=== PATIENT | female | born 1960 | race American Indian/Alaskan Native ===

== ENCOUNTER 2017-11-15 11:50 | Emergency (ER) | payer SELFPAY ==
[2017-11-15 12:01] VITALS: BP 153/75
--- NOTE | 2017-11-15 12:54 | Emergency Department Report ---
HPI - General Chief Complaint: Allergic Reaction Time Seen by Provider: 11/15/17 12:46 - HPI HPI: Patient is a 57-year-old female who states that last night while sleeping she felt something was on her face. When she woke up this morning she's got multiple areas of swelling to the face. This is from the hairline near her ear extending down to the cheek and chin. Patient states these areas are tender to touch. There are also some itching associated with it. Patient denies any fevers chills nausea vomiting at this time. ED Past Medical Hx - Past Medical History Hx Diabetes: Yes Additional medical history: Anemia - Surgical History Additional Surgical History: Left knee. Left 5th digit repair. - Social History Smoking Status: Never Smoker Substance Use Type: None - Medications Home Medications: Home Medications Medication Instructions Recorded Confirmed Last Taken Type Gabapentin 600 mg PO TID PRN 02/25/16 02/25/16 1 Day Ago History ~02/24/16 HumaLOG VIAL 42 unit SQ DAILY 02/25/16 02/25/16 1 Day Ago History ~02/24/16 Bacitracin Zinc Oint [Antibiotic 20 applic TP BID #1 tube 11/15/17 Unknown Rx Oint] Sulfamethoxazole/Trimethoprim 1 each PO BID #14 tablet 11/15/17 Unknown Rx [Bactrim DS TAB] predniSONE [Deltasone] 10 mg PO QDAY #5 tab 11/15/17 Unknown Rx ED Review of Systems ROS: Stated complaint: SOMETHING BITE HER ON FACE AND EAR Other details as noted in HPI Comment: All other systems reviewed and negative Physical Exam - Physical Exam Vital Signs: Vital Signs 11/15/17 11:58 Temperature 98.2 F Pulse Rate 97 H Respiratory 16 Rate Blood Pressure 153/75 O2 Sat by Pulse 99 Oximetry General: Patient is alert and oriented 3 in no acute distress Physical Exam: Patient has small papules with some surrounding erythema from the hairline near the ear extending down through the cheek and chin. These areas are consistent with insect bite swan. ED Course Vital Signs 11/15/17 11:58 Temperature 98.2 F Pulse Rate 97 H Respiratory 16 Rate Blood Pressure 153/75 O2 Sat by Pulse 99 Oximetry ED Medical Decision Making - Medical Decision Making Patient will be started on a short course of prednisone as well as Bactrim. Bacitracin will be given as well. Critical care attestation.: If time is entered above; I have spent that time in minutes in the direct care of this critically ill patient, excluding procedure time. ED Disposition Clinical Impression: Infected insect bite Qualifiers: Encounter type: initial encounter Qualified Code(s): W57.XXXA - Bitten or stung by nonvenomous insect and other nonvenomous arthropods, initial encounter Disposition: DC-01 TO HOME OR SELFCARE Is pt being admited?: No Does the pt Need Aspirin: No Condition: Stable Instructions: Insect Bite or Sting (ED) Prescriptions: Bacitracin Zinc Oint [Antibiotic Oint] 20 applic TP BID #1 tube predniSONE [Deltasone] 10 mg PO QDAY #5 tab Sulfamethoxazole/Trimethoprim [Bactrim DS TAB] 1 each PO BID #14 tablet Referrals: PRIMARY CARE, [Primary Care Provider] - 3-5 Days
--- NOTE | 2017-11-15 12:57 | Emergency Department Report ---
HPI - General Chief Complaint: Allergic Reaction Time Seen by Provider: 11/15/17 12:46 ED Past Medical Hx - Past Medical History Hx Diabetes: Yes Additional medical history: Anemia - Surgical History Additional Surgical History: Left knee. Left 5th digit repair. - Social History Smoking Status: Never Smoker Substance Use Type: None - Medications Home Medications: Home Medications Medication Instructions Recorded Confirmed Last Taken Type Gabapentin 600 mg PO TID PRN 02/25/16 02/25/16 1 Day Ago History ~02/24/16 HumaLOG VIAL 42 unit SQ DAILY 02/25/16 02/25/16 1 Day Ago History ~02/24/16 ED Review of Systems ROS: Stated complaint: SOMETHING BITE HER ON FACE AND EAR Other details as noted in HPI Physical Exam - Physical Exam Vital Signs: Vital Signs 11/15/17 11:58 Temperature 98.2 F Pulse Rate 97 H Respiratory 16 Rate Blood Pressure 153/75 O2 Sat by Pulse 99 Oximetry ED Course Vital Signs 11/15/17 11:58 Temperature 98.2 F Pulse Rate 97 H Respiratory 16 Rate Blood Pressure 153/75 O2 Sat by Pulse 99 Oximetry Critical care attestation.: If time is entered above; I have spent that time in minutes in the direct care of this critically ill patient, excluding procedure time. ED Disposition Condition: Stable Referrals: PRIMARY CARE, [Primary Care Provider] - 3-5 Days
== END 2017-11-15 14:00 | disposition home or self-care (01) ==
LOC: ED 11:50
DX: S00.86XA Insect bite (nonvenomous) of other part of head, initial encounter (principal); E11.9 Type 2 diabetes mellitus without complications; Z79.84 Long term (current) use of oral hypoglycemic drugs; W57.XXXA Bitten or stung by nonvenomous insect and other nonvenomous arthropods, initial encounter; Y93.89 Activity, other specified; Y92.89 Other specified places as the place of occurrence of the external cause; Y99.8 Other external cause status

== ENCOUNTER 2017-11-26 14:44 | Emergency (ER) | payer SELFPAY ==
[2017-11-26 15:46] LABS: Bacteria,Urine 1+ /HPF (Negative); Bilirubin,Urine NEG (Negative); Blood,Urine SM (Negative); Color,Urine Yellow (Yellow); Urobilinogen,Urine < 2.0 mg/dL (<2.0)
[2017-11-26 16:03] LABS: Basophils # (Auto) 0.1 K/mm3 (0.0-0.1); Eosinophils # (Auto) 0.2 K/mm3 (0.0-0.4); Eosinophils % (Auto) 2.3 % (0.0-4.3); Hematocrit 36.4 % (30.3-42.9); Hemoglobin 11.7 gm/dl (10.1-14.3); Lymphocytes # (Auto) 2.3 K/mm3 (1.2-5.4); Lymphocytes % (Auto) 32.7 % (13.4-35.0); Mean Corpuscular HGB Conc 32 % (30-34); Mean Corpuscular Hemoglobin 28 pg (28-32); Mean Corpuscular Volume 85 fl (79-97); Monocytes # (Auto) 0.5 K/mm3 (0.0-0.8); Monocytes % (Auto) 7.3 % (0.0-7.3); Platelet Count 333 K/mm3 (140-440); Red Blood Count 4.26 M/mm3 (3.65-5.03); Red Cell Distribution Width 13.8 % (13.2-15.2)
[2017-11-26 16:13] LABS: Albumin 4.2 g/dL (3.9-5); Calcium 9.8 mg/dL (8.4-10.2)
[2017-11-26] MEDS ORDERED: NACL 0.9% 1000 ML 1,000 ML IV ONE (16:15)
[2017-11-26] MEDS ORDERED: TORADOL IV ONE (16:26)
[2017-11-26 16:49] VITALS: BP 133/63
--- NOTE | 2017-11-26 17:06 | Emergency Department Report ---
ED Abdominal Pain HPI - General Chief Complaint: Abdominal Pain Stated Complaint: PAIN/LEFT SIDE Time Seen by Provider: 11/26/17 16:30 Source: patient Mode of arrival: Ambulatory Limitations: No Limitations - History of Present Illness Initial Comments: Ms Olson is a 57 year-old woman with hx of IDDM and anemia who presents with left flank pain. has been having left flank pain for about 7 days. Does not radiate. not assocaited with nausea/vomiting. Normal urine, no blood in urine, no pain with urination. Normal stools. Reporst poorly controlled blood sugar. [facility] she was told her kidney fucntion is worsening. MD Complaint: flank pain Severity scale (0 -10): 6 - Related Data Home Medications Medication Instructions Recorded Confirmed Last Taken Gabapentin 600 mg PO TID PRN 02/25/16 02/25/16 1 Day Ago ~02/24/16 HumaLOG VIAL 42 unit SQ DAILY 02/25/16 02/25/16 1 Day Ago ~02/24/16 Previous Rx's Medication Instructions Recorded Last Taken Type Bacitracin Zinc Oint [Antibiotic 20 applic TP BID #1 tube 11/15/17 Unknown Rx Oint] Sulfamethoxazole/Trimethoprim 1 each PO BID #14 tablet 11/15/17 Unknown Rx [Bactrim DS TAB] predniSONE [Deltasone] 10 mg PO QDAY #5 tab 11/15/17 Unknown Rx Allergies Allergy/AdvReac Type Severity Reaction Status Date / Time No Known Allergies Allergy Unverified 08/07/13 10:44 ED Review of Systems ROS: Stated complaint: PAIN/LEFT SIDE Other details as noted in HPI Constitutional: Negative for fever, chills and diaphoresis. HENT: Negative for nosebleeds. Negative for congestion, rhinorrhea, neck pain and neck stiffness. Eyes: Negative for photophobia, pain and visual disturbance. Respiratory: Negative for cough and shortness of breath. Cardiovascular: Negative for chest pain, palpitations and leg swelling. Gastrointestinal: Negative for nausea, vomiting, abdominal pain, diarrhea, constipation and blood in stool. Genitourinary: Negative for dysuria and hematuria. Musculoskeletal: Negative for joint pain or joint swelling Skin: Negative for rash. Neurological: Negative for numbness. Negative for speech difficulty and weakness. ED Past Medical Hx - Past Medical History Previous Medical History?: Yes Hx Hypertension: Yes Hx Diabetes: Yes Additional medical history: Anemia - Surgical History Past Surgical History?: Yes Additional Surgical History: Left knee. Left 5th digit repair. - Social History Smoking Status: Never Smoker Substance Use Type: Prescribed - Medications Home Medications: Home Medications Medication Instructions Recorded Confirmed Last Taken Type Gabapentin 600 mg PO TID PRN 02/25/16 02/25/16 1 Day Ago History ~02/24/16 HumaLOG VIAL 42 unit SQ DAILY 02/25/16 02/25/16 1 Day Ago History ~02/24/16 Bacitracin Zinc Oint [Antibiotic 20 applic TP BID #1 tube 11/15/17 Unknown Rx Oint] Sulfamethoxazole/Trimethoprim 1 each PO BID #14 tablet 11/15/17 Unknown Rx [Bactrim DS TAB] predniSONE [Deltasone] 10 mg PO QDAY #5 tab 11/15/17 Unknown Rx ED Physical Exam - General Limitations: No Limitations General appearance: alert, in no apparent distress - Head Head exam: Present: atraumatic, normocephalic - Eye Eye exam: Present: normal appearance - ENT ENT exam: Present: mucous membranes moist - Neck Neck exam: Present: normal inspection - Respiratory Respiratory exam: Present: normal lung sounds bilaterally. Absent: respiratory distress - Cardiovascular Cardiovascular Exam: Present: regular rate, normal rhythm. Absent: systolic murmur, diastolic murmur, rubs, gallop - GI/Abdominal GI/Abdominal exam: Present: soft, normal bowel sounds - Extremities Exam Extremities exam: Present: normal inspection - Back Exam Back exam: Present: normal inspection - Neurological Exam Neurological exam: Present: alert, oriented X3 - Psychiatric Psychiatric exam: Present: normal affect, normal mood - Skin Skin exam: Present: warm, dry, intact, normal color. Absent: rash ED Course Vital Signs 11/26/17 11/26/17 11/26/17 14:46 15:35 15:45 Temperature 98.9 F Pulse Rate 119 H 107 H Respiratory 20 12 Rate Blood Pressure 210/100 140/86 Blood Pressure [Right] O2 Sat by Pulse 97 98 98 Oximetry 11/26/17 11/26/17 16:15 16:30 Temperature Pulse Rate 95 H 96 H Respiratory 15 14 Rate Blood Pressure Blood Pressure 118/41 133/63 [Right] O2 Sat by Pulse 98 98 Oximetry ED Medical Decision Making - Lab Data Result diagrams: 11/26/17 15:45 11/26/17 15:45 - Medical Decision Making Ms Olson is a 57 year-old woman who presents with left flank pain for 1 week. Nervous her kidney are failing. Exam without any elicitable abdominal, chest or flank tenderness. No CVA ttp. Initial HR elevated, now less than 100 without any interventions. DDX: UTI vs pyelo vs kidney stone vs kidney failure. Normal bowel function, low suspicion of GI related issue. UA clean. Cr 1.4, BUN 27. Had discussion with patient regarding possible MSK etiology of pain. TOld he is mildly dehdyrated with elevated glucose. She is instructed to stay well hydtaed and f/u with her pcp in order to adjust her insulin. Given care instructions and return precautions. safe for dc to home Critical care attestation.: If time is entered above; I have spent that time in minutes in the direct care of this critically ill patient, excluding procedure time. ED Disposition Clinical Impression: Flank pain Disposition: DC-01 TO HOME OR SELFCARE Is pt being admited?: No Does the pt Need Aspirin: No Condition: Stable Instructions: Abdominal Pain (ED) Referrals: PRIMARY CARE, [Primary Care Provider] - 3-5 Days
== END 2017-11-26 17:25 | disposition home or self-care (01) ==
LOC: ED 14:44
DX: R10.9 Unspecified abdominal pain (principal); I10 Essential (primary) hypertension; E11.9 Type 2 diabetes mellitus without complications; D64.9 Anemia, unspecified; Z79.4 Long term (current) use of insulin
CPT/HCPCS: 36415; 80053; 81001; 83690; 85025; 99284; J7030

== ENCOUNTER 2018-01-25 09:10 | Emergency (ER) | payer SELFPAY ==
[2018-01-25 09:28] VITALS: BP 159/72
--- NOTE | 2018-01-25 11:19 | Emergency Department Report ---
ED General Adult HPI - General Chief complaint: Dizziness Stated complaint: LIGHT HEADED Time Seen by Provider: 01/25/18 10:47 Source: patient Mode of arrival: Ambulatory Limitations: No Limitations - History of Present Illness Initial comments: 58-year-old female the past but this is sarcoidosis, diabetes, hypertension, and anemia presents to the hospital with complaint of exposure to rodent's, rat poison, and pesticides. Other family members in the home also presented with a variety of complaints. This patient's complaint is that she is feeling lightheaded and having intermittent stomach cramps and diarrhea 1 week. She and her family left the home 2 weeks as instructed after the place was treated. They returned on the in have been having symptoms since. They have requested that the apartment [employer] put them in a hotel but they have declined. She is concerned that exposure to both the pesticides, rats, and feces may be causing her symptoms. - Related Data Home Medications Medication Instructions Recorded Confirmed Last Taken Gabapentin 600 mg PO TID PRN 02/25/16 02/25/16 1 Day Ago ~02/24/16 HumaLOG VIAL 42 unit SQ DAILY 02/25/16 02/25/16 1 Day Ago ~02/24/16 Previous Rx's Medication Instructions Recorded Last Taken Type Bacitracin Zinc Oint [Antibiotic 20 applic TP BID #1 tube 11/15/17 Unknown Rx Oint] Sulfamethoxazole/Trimethoprim 1 each PO BID #14 tablet 11/15/17 Unknown Rx [Bactrim DS TAB] predniSONE [Deltasone] 10 mg PO QDAY #5 tab 11/15/17 Unknown Rx Allergies Allergy/AdvReac Type Severity Reaction Status Date / Time No Known Allergies Allergy Unverified 08/07/13 10:44 ED Review of Systems ROS: Stated complaint: LIGHT HEADED Other details as noted in HPI Comment: All other systems reviewed and negative ED Past Medical Hx - Past Medical History Previous Medical History?: Yes Hx Hypertension: Yes Hx Diabetes: Yes Additional medical history: Anemia. sacroidosis - Surgical History Past Surgical History?: No Additional Surgical History: Left knee. Left 5th digit repair. - Social History Smoking Status: Never Smoker Substance Use Type: None - Medications Home Medications: Home Medications Medication Instructions Recorded Confirmed Last Taken Type Gabapentin 600 mg PO TID PRN 02/25/16 02/25/16 1 Day Ago History ~02/24/16 HumaLOG VIAL 42 unit SQ DAILY 02/25/16 02/25/16 1 Day Ago History ~02/24/16 Bacitracin Zinc Oint [Antibiotic 20 applic TP BID #1 tube 11/15/17 Unknown Rx Oint] Sulfamethoxazole/Trimethoprim 1 each PO BID #14 tablet 11/15/17 Unknown Rx [Bactrim DS TAB] predniSONE [Deltasone] 10 mg PO QDAY #5 tab 11/15/17 Unknown Rx ED Physical Exam - General Limitations: No Limitations - Other Other exam information: General: No limitations, patient is alert in no acute distress Head exam: Atraumatic, normocephalic Eyes exam: Normal appearance ENT: Moist mucous membrane Neck exam: Normal inspection, full range of motion, no meningismus nontender Respiratory exam: Clear to auscultation bilateral, no wheezes, rales, crackles Cardiovascular: Normal rate and rhythm, normal heart sounds Abdomen: Soft, nondistended, and nontender, with normal bowel sounds, no rebound, or guarding Extremity: Full range of motion normal inspection no deformity Back: Normal Inspection, full range of motion, no tenderness Neurologic: Alert, oriented x3, cranial nerves intact, no motor or sensory deficit Psychiatric: normal affect, normal mood Skin: Warm, dry, intactm ED Course Vital Signs 01/25/18 09:24 Temperature 98.2 F Pulse Rate 89 Respiratory 16 Rate Blood Pressure 159/72 O2 Sat by Pulse 100 Oximetry - Consultations Consultation #1: 01/25/18 11:19 I spoke to poison control and communicate with Louis. Symptomatic treatment recommended as well as leaving the environment. I will instruct patient to obtain the exact names of the poisons into contact poison control with this additional information for further recommendations ED Medical Decision Making - Medical Decision Making Patient had been intermittent diarrhea 1 week. No by mouth intolerance or diarrhea placed today. Patient is taking antidiarrheal medication with improvement. I informed patient that the environment is making her sick then she needs to leave the environment. She states financial issues as reason for inability to relocate. I encouraged her to try to obtain the names of the pesticides and to recontact poison control with this information. However, it appears that there is also appears to be eroded feces at the home and therefore I still advised that they leave the environment. - Differential Diagnosis insecticide exposure, viral syndrome, infection Critical Care Time: No Critical care attestation.: If time is entered above; I have spent that time in minutes in the direct care of this critically ill patient, excluding procedure time. ED Disposition Clinical Impression: Toxic effect of insecticide, Diarrhea Disposition: DC-01 TO HOME OR SELFCARE Is pt being admited?: No Does the pt Need Aspirin: No Condition: Stable Instructions: Acute Diarrhea (ED) Additional Instructions: Follow up with your doctor. Return if symptoms worsen as indicated by your discharge instructions. Try to obtained the exact names of the insecticides used on your apartment. Call poison at with this information to discuss further management. It is advised that you leave the apartment since the environment is making you ill. Referrals: PRIMARY CARE, [Primary Care Provider] - 2-3 Days (Collin blount MD) Time of Disposition: 11:24
== END 2018-01-25 11:32 | disposition home or self-care (01) ==
LOC: ED 09:10
DX: T60.91XA Toxic effect of unspecified pesticide, accidental (unintentional), initial encounter (principal); R19.7 Diarrhea, unspecified; I10 Essential (primary) hypertension; E11.9 Type 2 diabetes mellitus without complications; Y92.009 Unspecified place in unspecified non-institutional (private) residence as the place of occurrence of the external cause
CPT/HCPCS: 99282

== ENCOUNTER 2019-01-23 08:10 | Emergency (ER) | payer MEDICAID ==
[2019-01-23] MEDS ORDERED: ASPIRIN PO ONE (08:27)
[2019-01-23 09:03] LABS: Basophils # (Auto) 0.1 K/mm3 (0.0-0.1); Basophils % (Auto) 1.3 % (0.0-1.8); Eosinophils # (Auto) 0.3 K/mm3 (0.0-0.4); Eosinophils % (Auto) 4.2 % (0.0-4.3); Hematocrit 35.3 % (30.3-42.9); Hemoglobin 11.4 gm/dl (10.1-14.3); Lymphocytes # (Auto) 1.7 K/mm3 (1.2-5.4); Lymphocytes % (Auto) 22.2 % (13.4-35.0); Mean Corpuscular HGB Conc 32 % (30-34); Mean Corpuscular Volume 85 fl (79-97); Monocytes # (Auto) 0.6 K/mm3 (0.0-0.8); Monocytes % (Auto) 7.4 % (0.0-7.3); Platelet Count 338 K/mm3 (140-440); Red Blood Count 4.18 M/mm3 (3.65-5.03); Red Cell Distribution Width 14.3 % (13.2-15.2)
[2019-01-23 09:17] LABS: INR 0.96 (0.87-1.13)
[2019-01-23 09:18] LABS: BUN/Creatinine Ratio 17; Blood Urea Nitrogen 25 mg/dL (7-17); Calcium 9.4 mg/dL (8.4-10.2); Hemolysis Index 1; Partial Thromboplastin Time 26.9 Sec. (24.2-36.6)
--- NOTE | 2019-01-23 09:41 | XRay Report ---
CHEST 2 VIEWS INDICATION: Chest Pain. COMPARISON: 02/25/2016 FINDINGS: Support devices: None. Heart: Within normal limits. Lungs/pleura: No acute air space or interstitial disease. No pneumothorax. Additional findings: None. IMPRESSION: 1. No acute findings. Signer Name: Albino Marie MD Signed: 01/23/2019 9:36 AM Workstation Name: [id number]
--- NOTE | 2019-01-23 10:53 | Emergency Department Report ---
ED Chest Pain HPI - General Chief Complaint: Chest Pain Stated Complaint: CHEST PAIN Time Seen by Provider: 01/23/19 10:17 Source: patient Mode of arrival: Ambulatory Limitations: No Limitations - History of Present Illness Initial Comments: 59-year-old female with history of hypertension, diabetes presents to ED with chest pain and palpitations. Patient's states since last night she has been having intermittent sharp left-sided chest pain, that lasts approximately 1-2 seconds, and is followed by a fluttering sensation also lasting a few seconds. Patient denies shortness of breath, nausea, vomiting, diaphoresis, leg pain or swelling. Patient states symptoms began after drinking green tea last night. Patient denies smoking and drug use. MD Complaint: chest pain -: Last night Onset: during rest Pain Location: left chest Pain Radiation: none Severity: mild Quality: sharp Consistency: intermittent Improves With: nothing Worsens With: nothing re: denies: nausea, vomting, diaphoresis, dyspnea Other Symptoms: palpitations. denies: cough, fever, leg swelling - Related Data Home Medications Medication Instructions Recorded Confirmed Last Taken Gabapentin 600 mg PO TID PRN 02/25/16 02/25/16 1 Day Ago ~02/24/16 HumaLOG VIAL 42 unit SQ DAILY 02/25/16 02/25/16 1 Day Ago ~02/24/16 Previous Rx's Medication Instructions Recorded Last Taken Type Bacitracin Zinc Oint [Antibiotic 20 applic TP BID #1 tube 11/15/17 Unknown Rx Oint] Sulfamethoxazole/Trimethoprim 1 each PO BID #14 tablet 11/15/17 Unknown Rx [Bactrim DS TAB] predniSONE [Deltasone] 10 mg PO QDAY #5 tab 11/15/17 Unknown Rx Allergies Allergy/AdvReac Type Severity Reaction Status Date / Time No Known Allergies Allergy Unverified 08/07/13 10:44 Heart Score - HEART Score History: Slightly suspicious EKG: Normal Age: 45-65 Risk factors: > 3 risk factors or hx of atherosclerotic disease Troponin: < normal limit HEART Score: 3 - Critical Actions Critical Actions: 0-3 pts:0.9-1.7%risk of adverse cardiac event.Candidate for discharge ED Review of Systems ROS: Stated complaint: CHEST PAIN Other details as noted in HPI Comment: All other systems reviewed and negative Constitutional: denies: chills, fever Respiratory: denies: cough, shortness of breath Cardiovascular: chest pain, palpitations Gastrointestinal: denies: nausea, vomiting Musculoskeletal: other (denies leg pain or swelling) ED Past Medical Hx - Past Medical History Previous Medical History?: Yes Hx Hypertension: Yes Hx Diabetes: Yes Additional medical history: Anemia. sacroidosis - Surgical History Past Surgical History?: Yes Additional Surgical History: Left knee. Left 5th digit repair. - Social History Smoking Status: Never Smoker Substance Use Type: None - Medications Home Medications: Home Medications Medication Instructions Recorded Confirmed Last Taken Type Gabapentin 600 mg PO TID PRN 02/25/16 02/25/16 1 Day Ago History ~02/24/16 HumaLOG VIAL 42 unit SQ DAILY 02/25/16 02/25/16 1 Day Ago History ~02/24/16 Bacitracin Zinc Oint [Antibiotic 20 applic TP BID #1 tube 11/15/17 Unknown Rx Oint] Sulfamethoxazole/Trimethoprim 1 each PO BID #14 tablet 11/15/17 Unknown Rx [Bactrim DS TAB] predniSONE [Deltasone] 10 mg PO QDAY #5 tab 11/15/17 Unknown Rx ED Physical Exam - General Limitations: No Limitations General appearance: alert - Head Head exam: Present: atraumatic, normocephalic - Eye Eye exam: Present: normal appearance, PERRL, EOMI - ENT ENT exam: Present: mucous membranes moist - Neck Neck exam: Present: normal inspection - Respiratory Respiratory exam: Present: normal lung sounds bilaterally. Absent: respiratory distress - Cardiovascular Cardiovascular Exam: Present: regular rate, normal rhythm - GI/Abdominal GI/Abdominal exam: Present: soft. Absent: distended, tenderness - Extremities Exam Extremities exam: Present: normal inspection. Absent: pedal edema, calf tenderness - Neurological Exam Neurological exam: Present: alert, oriented X3, CN II-XII intact. Absent: motor sensory deficit - Psychiatric Psychiatric exam: Present: normal affect, normal mood - Skin Skin exam: Present: warm, dry, intact, normal color ED Course Vital Signs 01/23/19 01/23/19 01/23/19 08:24 09:44 10:01 Temperature 97.9 F Pulse Rate 85 79 Respiratory 18 13 Rate Blood Pressure 130/74 142/75 O2 Sat by Pulse 100 96 100 Oximetry 01/23/19 01/23/19 01/23/19 10:31 11:01 11:39 Temperature Pulse Rate 88 81 87 Respiratory 13 14 21 Rate Blood Pressure 184/86 201/95 O2 Sat by Pulse 99 99 Oximetry CHEIKH score - Cheikh Score Age > 65: (0) No Aspirin use within the Past 7 Days: (0) No 3 or more CAD Risk Factors: (0) No 2 or more Angina events in past 24 hrs: (0) No Known CAD with more than 50% Stenosis: (0) No Elevated Cardiac Markers: (0) No ST Deviation Greater than 0.5mm: (0) No CHEIKH Score: 0 ED Medical Decision Making - Lab Data Result diagrams: 01/23/19 08:50 01/23/19 08:50 - EKG Data -: EKG Interpreted by Me EKG shows normal: sinus rhythm, axis, intervals, QRS complexes, ST-T waves Rate: normal - EKG Data Interpretation: no acute changes - Radiology Data Radiology results: report reviewed, image reviewed - Medical Decision Making 59 yo F with intermittent sharp chest pain, lasting only a couple of seconds with associated fluttering sensation that follows. EKG and troponin normal x 2. No abnormal rhythms or PVCs present. HEART score is 3. Pt advised to follow up as an outpt. Cardiology referral given. BP normal during most of ED stay. SBP increased to 200. Pt reports that she did not take her BP meds this morning, Norvasc and HCTZ. Advised pt to take her home meds, which she has with her. Will discharge at this time. Return precautions given. - Differential Diagnosis ACS, arrythmia, electrolyte abnormality, pleurisy, pneumonia Critical care attestation.: If time is entered above; I have spent that time in minutes in the direct care of this critically ill patient, excluding procedure time. ED Disposition Clinical Impression: Chest pain, Palpitations, Hypertension Disposition: - TO HOME OR SELFCARE Is pt being admited?: No Condition: Stable Instructions: Chest Pain (ED), Palpitations (ED), Hypertension (ED) Referrals: LEANNA BERNABE MD [Primary Care Provider] - 3-5 Days BETH ABUMANN MD [Staff Physician] - 3-5 Days RICKI SANTOS MD [Staff Physician] - 3-5 Days Time of Disposition: 12:00
[2019-01-23 12:09] VITALS: BP 158/82
== END 2019-01-23 12:40 | disposition home or self-care (01) ==
LOC: ED 08:10
DX: I10 Essential (primary) hypertension (principal); E11.9 Type 2 diabetes mellitus without complications; Z79.899 Other long term (current) drug therapy; Z79.84 Long term (current) use of oral hypoglycemic drugs; Z86.2 Personal history of diseases of the blood and blood-forming organs and certain disorders involving the immune mechanism
CPT/HCPCS: 36415; 71046; 80048; 84484; 85025; 85610; 85730; 93005; 93010; 99284

== ENCOUNTER 2021-03-02 18:53 | Inpatient (IN) | payer MEDICAID ==
--- NOTE | 2021-03-02 21:17 | Event Note ---
ED Screening Note Date of service: 03/02/21 Time: 21:14 ED Screening Note: 61 y/o female come in for abnormal labs. Has a new PCP and was told that her kidney function test is getting worst. This initial assessment/diagnostic orders/clinical plan/treatment(s) is/are subject to change based on patients health status, clinical progression and re- assessment by fellow clinical providers in the ED. Further treatment and workup at subsequent clinical providers discretion. Patient/guardian urged not to elope from the ED as their condition may be serious if not clinically assessed and managed. Initial orders include:
--- NOTE | 2021-03-02 21:19 | Emergency Department Report ---
ED General Adult HPI - General Chief complaint: Recheck/Abnormal Lab/Rx Stated complaint: DR MALIK, LAB RESULTS Time Seen by Provider: 03/02/21 21:12 Source: patient Mode of arrival: Ambulatory Limitations: No Limitations - History of Present Illness Initial comments: Patient presents with reports of abnormal labs. She had been seen at urgent care and told that her kidney function was high. She was told her potassium was high. She was told to come here for evaluation. Patient admits that she is just not felt well. She however has not had any chest pain or cough. There has been no shortness of breath. She has had no fevers or chills. She denies vomiting or diarrhea. She knows that she has some kidney issues. She has not taken any medications for kidney problems. She had been seen by a slasher operator previously but does not recall any specific lab values. She admits to being diabetic. She has hypertension but is not on CRISTA inhibitor. The labs written down by the urgent care showed a BUN in the 50s, a creatinine of 3.5, and a potassium of 6. - Related Data Home Medications Medication Instructions Recorded Confirmed Last Taken Gabapentin 600 mg PO TID PRN 02/25/16 02/25/16 1 Day Ago ~02/24/16 HumaLOG VIAL 42 unit SQ DAILY 02/25/16 02/25/16 1 Day Ago ~02/24/16 Previous Rx's Medication Instructions Recorded Last Taken Type Bacitracin Zinc Oint [Antibiotic 20 applic TP BID #1 tube 11/15/17 Unknown Rx Oint] Sulfamethoxazole/Trimethoprim 1 each PO BID #14 tablet 11/15/17 Unknown Rx [Bactrim DS TAB] predniSONE 10 mg PO QDAY #5 tab 11/15/17 Unknown Rx Allergies Allergy/AdvReac Type Severity Reaction Status Date / Time No Known Allergies Allergy Verified 03/02/21 20:24 ED Review of Systems ROS: Stated complaint: DR MALIK, LAB RESULTS Other details as noted in HPI Comment: All other systems reviewed and negative Constitutional: denies: fever Eyes: denies: eye pain ENT: denies: throat pain Respiratory: denies: cough Cardiovascular: denies: chest pain Endocrine: denies: unexplained weight loss Gastrointestinal: denies: abdominal pain Genitourinary: denies: dysuria Musculoskeletal: denies: back pain Skin: denies: rash Neurological: denies: headache Hematological/Lymphatic: denies: easy bruising ED Past Medical Hx - Past Medical History Hx Hypertension: Yes Hx Diabetes: Yes Hx Arthritis: Yes Additional medical history: Anemia. sacroidosis - Surgical History Additional Surgical History: Left knee. Left 5th digit repair. - Family History Family history: diabetes, hypertension - Social History Smoking Status: Never Smoker Substance Use Type: None - Medications Home Medications: Home Medications Medication Instructions Recorded Confirmed Last Taken Type Gabapentin 600 mg PO TID PRN 02/25/16 02/25/16 1 Day Ago History ~02/24/16 HumaLOG VIAL 42 unit SQ DAILY 02/25/16 02/25/16 1 Day Ago History ~02/24/16 Bacitracin Zinc Oint [Antibiotic 20 applic TP BID #1 tube 11/15/17 Unknown Rx Oint] Sulfamethoxazole/Trimethoprim 1 each PO BID #14 tablet 11/15/17 Unknown Rx [Bactrim DS TAB] predniSONE 10 mg PO QDAY #5 tab 11/15/17 Unknown Rx ED Physical Exam - General Limitations: No Limitations, Other ( Pulse ox is noted to normal. She is not hypoxic.) General appearance: alert, in no apparent distress - Head Head exam: Present: atraumatic, normocephalic, normal inspection - Eye Eye exam: Present: normal appearance, EOMI. Absent: scleral icterus - ENT ENT exam: Present: normal exam, normal orophraynx - Neck Neck exam: Present: normal inspection. Absent: meningismus - Respiratory Respiratory exam: Present: normal lung sounds bilaterally. Absent: respiratory distress - Cardiovascular Cardiovascular Exam: Present: regular rate, normal rhythm - GI/Abdominal GI/Abdominal exam: Present: soft. Absent: distended, tenderness - Extremities Exam Extremities exam: Present: normal capillary refill. Absent: pedal edema - Back Exam Back exam: Absent: CVA tenderness (R), CVA tenderness (L) - Neurological Exam Neurological exam: Present: alert, oriented X3, CN II-XII intact, normal gait - Psychiatric Psychiatric exam: Present: normal affect, normal mood - Skin Skin exam: Present: warm, dry ED Course Vital Signs 03/02/21 20:30 Temperature 98.4 F Pulse Rate 94 H Respiratory 16 Rate Blood Pressure 168/83 [Left] O2 Sat by Pulse 100 Oximetry - Reevaluation(s) Reevaluation #1: 03/02/21 21:19 labs ordered. Reevaluation #2: 03/02/21 23:35 labs noted ED Medical Decision Making - Lab Data Result diagrams: 03/02/21 21:25 03/02/21 21:25 - Medical Decision Making Patient presents with reports of abnormal labs. She was found to have evidence of kidney injury. How much is acute versus chronic is unknown. Labs based on our system are from 2019 where she had a creatinine 1.5. She started does not have hyperkalemia here. Patient will be admitted for IV hydration and repeat laboratory evaluation. She does not appear to be septic or toxic. She does not have weakness suggestive of any other acute pathology. There is no evidence of acidosis as her bicarbonate is grossly unremarkable. Case has been discussed with the hospitalist who will admit the patient. They can consult nephrology as indicated. Critical Care Time: No Critical care attestation.: If time is entered above; I have spent that time in minutes in the direct care of this critically ill patient, excluding procedure time. ED Disposition Clinical Impression: KAMAR (acute kidney injury), CKD (chronic kidney disease) Disposition: ADMITTED INPATIENT Is pt being admited?: Yes Does the pt Need Aspirin: No Condition: Stable
[2021-03-02 21:29] LABS: Bilirubin,Urine NEG (Negative); Blood,Urine SM (Negative); Color,Urine Straw (Yellow); Urobilinogen,Urine < 2.0 mg/dL (<2.0)
[2021-03-02 22:00] LABS: Hematocrit 27.9 % (30.3-42.9); Hemoglobin 9.2 gm/dl (10.1-14.3); Mean Corpuscular HGB Conc 33 % (30-34); Mean Corpuscular Volume 87 fl (79-97); Platelet Count 346 K/mm3 (140-440); Red Blood Count 3.23 M/mm3 (3.65-5.03); Red Cell Distribution Width 14.4 % (13.2-15.2)
[2021-03-02 22:13] LABS: Alanine Aminotransferase 20 units/L (7-56); Albumin 3.9 g/dL (3.9-5); Blood Urea Nitrogen 69 mg/dL (7-17); Hemolysis Index 1
[2021-03-02 22:18] LABS: BUN/Creatinine Ratio 16
[2021-03-02] MEDS ORDERED: SODIUM CHLORIDE 0.9% 1000 ML 1,000 ML IV ONE (23:34)
[2021-03-02] MEDS ORDERED: SODIUM CHLORIDE 0.45% 1000 ML 1,000 ML IV SCH (23:45)
[2021-03-02] MEDS ORDERED: ONDANSETRON 4 MG/2 ML INJ IV PRN (23:59)
[2021-03-02] MEDS ORDERED: oxyCODONE /ACETAMINOPHEN 5-325MG TAB PO PRN (23:59)
[2021-03-02] MEDS ORDERED: DEXTROSE 50% IN WATER (25GM) 50 ML SYRINGE IV PRN (23:59)
[2021-03-02] MEDS ORDERED: ACETAMINOPHEN 325 MG TAB PO PRN (23:59)
[2021-03-02] MEDS ORDERED: NALOXONE 0.4 MG/1 ML INJ IV PRN (23:59)
[2021-03-02] MEDS ORDERED: MORPHINE 4 MG/1 ML INJ IV PRN (23:59)
[2021-03-03] MEDS ORDERED: amLODIPine 10 MG TAB PO ONE (00:05)
[2021-03-03 01:37] LABS: Band Neutrophils # (Manual) 0.1 K/mm3; Total Cells Counted 100
[2021-03-03 01:39] LABS: Large Platelets Rare; Ovalocytes Rare; Platelet Estimate Cons; Schistocytes Rare
[2021-03-03] MEDS ORDERED: amLODIPine 5 MG TAB PO ONE (02:13)
--- NOTE | 2021-03-03 02:30 | History and Physical Report ---
History of Present Illness Date of examination: 03/02/21 Date of admission: 03/02/21 23:59 Chief complaint: Abnormal labs History of present illness: 61-year-old female with history of hypertension, uncontrolled [id number] diabetes, arthritis, chronic anemia, and sarcoidosis who presents [facility] ED with complaints of abnormal lab values. Patient states she was advised to report to the ED after presenting to urgent care and was found to have abnormal lab values. Specifically patient reports she was told by urgent care provider that she had a potassium level of 6.0, creatinine of 3.5, and BUN was in the 50s. Patient endorses chronic kidney disease, has seen a asphalt distributor operator in the past, but denies taking any medications for renal failure. Endorses frequent urination. Denies polyphasia, polydipsia, dysuria, hematuria, decrease urination, nausea, vomiting, diarrhea, fever, chest pain, shortness of breath, palpitation, flank pain, chronic use of nephro toxic meds, denies use of CRISTA or ARB, or recent sick contacts Past History Past Medical History: anemia, arthritis, diabetes, hypertension, sarcoidosis Past Surgical History: Other (D&C x2, neck biopsy, left knee surgery, right eye surgery, left fifth digit repair) Social history: lives with family (2 daughters and 3 grandsons), full code. denies: smoking, alcohol abuse, prescription drug abuse, IV drug use Family history: hypertension Medications and Allergies Allergies Allergy/AdvReac Type Severity Reaction Status Date / Time No Known Allergies Allergy Verified 03/02/21 20:24 Home Medications Medication Instructions Recorded Confirmed Last Taken Type Gabapentin 600 mg PO TID PRN 02/25/16 02/25/16 1 Day Ago History ~02/24/16 HumaLOG VIAL 42 unit SQ DAILY 02/25/16 02/25/16 1 Day Ago History ~02/24/16 Bacitracin Zinc Oint [Antibiotic 20 applic TP BID #1 tube 11/15/17 Unknown Rx Oint] Sulfamethoxazole/Trimethoprim 1 each PO BID #14 tablet 11/15/17 Unknown Rx [Bactrim DS TAB] predniSONE 10 mg PO QDAY #5 tab 11/15/17 Unknown Rx Active Meds: Active Medications Acetaminophen (Acetaminophen 325 Mg Tab) 650 mg PO Q4H PRN PRN Reason: Pain MILD(1-3)/Fever >100.5/JUAREZ Amlodipine Besylate (Amlodipine 10 Mg Tab) 10 mg PO QDAY [facility] Dextrose (Dextrose 50% In Water (25gm) 50 Ml Syringe) 50 ml IV Q30MIN PRN; Protocol PRN Reason: Hypoglycemia Docusate Sodium (Docusate Sodium 100 Mg Cap) 100 mg PO BID [facility] Famotidine (Famotidine 10 Mg Tab) 10 mg PO BID [facility] Heparin Sodium (Porcine) (Heparin 5,000 Unit/1 Ml Vial) 5,000 unit SUB-Q Q12HR [facility] Sodium Chloride (Nacl 0.45% 1000 Ml) 1,000 mls @ 100 mls/hr IV DIRECT [facility] Insulin Human Lispro (Insulin Lispro 100 Unit/Ml) 0 unit SUB-Q ACHS [facility]; Protocol Morphine Sulfate (Morphine 4 Mg/1 Ml Inj) 4 mg IV Q4H PRN PRN Reason: Pain , Severe (7-10) Naloxone HCl (Naloxone 0.4 Mg/1 Ml Inj) 0.1 mg IV Q2MIN PRN PRN Reason: Res Rate </= 8 or 02 SAT < 92% Ondansetron HCl (Ondansetron 4 Mg/2 Ml Inj) 4 mg IV Q8H PRN PRN Reason: Nausea And Vomiting Oxycodone/Acetaminophen (Oxycodone /Acetaminophen 5-325mg Tab) 1 tab PO Q6H PRN PRN Reason: Pain, Moderate (4-6) Sodium Chloride (Sodium Chloride 0.9% 10 Ml Flush Syringe) 10 ml IV BID [facility] Sodium Chloride (Sodium Chloride 0.9% 10 Ml Flush Syringe) 10 ml IV PRN PRN PRN Reason: LINE FLUSH Review of Systems All systems: negative (As noted in HPI) Exam - Physical Exam Narrative exam: Physical exam General appearance: Present: No acute distress, alert and oriented 3, adult female - EENT Eyes: Present: PERRL, EOM intact ENT: hearing intact, normal dentition - Neck Neck: Present: supple, normal ROM - Respiratory Respiratory effort: Non-labored Respiratory: Clear throughout - Cardiovascular Heart rate: 90 (bpm) Rhythm: Sinus Heart Sounds: Present: S1 & S2. Absent: rub, click - Extremities Extremities: no ischemia, pulses intact, - Peripheral Assessment Peripheral Pulses: within normal limits - Abdominal General gastrointestinal: soft, non-tender, normal bowel sounds - Integumentary Integumentary: Present: warm, dry - Musculoskeletal Musculoskeletal: Able to move all extremities -Neurological Neurological: CN II-XII intact - Psychiatric Psychiatric: cooperative - Constitutional Vitals: Temp Pulse Resp BP Pulse Ox 98.4 F 92 H 16 174/85 100 03/02/21 20:30 03/03/21 02:18 03/02/21 20:30 03/03/21 02:18 03/02/21 20:30 Results - Labs CBC & Chem 7: 03/02/21 21:25 03/02/21 21:25 Labs: Laboratory Last Values WBC 10.8 K/mm3 (4.5-11.0) 03/02/21 21: RBC 3.23 M/mm3 (3.65-5.03) L 03/02/21 21:25 Hgb 9.2 gm/dl (10.1-14.3) L 03/02/21 21:25 Hct 27.9 % (30.3-42.9) L 03/02/21 21:25 MCV 87 fl (79-97) 03/02/21 21:25 MCH 29 pg (28-32) 03/02/21 21:25 MCHC 33 % (30-34) 03/02/21 21:25 RDW 14.4 % (13.2-15.2) 03/02/21 21:25 Plt Count 346 K/mm3 (140-440) 03/02/21 21:25 Add Manual Diff Complete 03/02/21 21:25 Total Counted 100 03/02/21 21:25 Seg Neuts % (Manual) 68.0 % (40.0-70.0) 03/02/21 21:25 Band Neutrophils % 1.0 % 03/02/21 21:25 Lymphocytes % (Manual) 22.0 % (13.4-35.0) 03/02/21 21:25 Monocytes % (Manual) 3.0 % (0.0-7.3) 03/02/21 21:25 Eosinophils % (Manual) 4.0 % (0.0-4.3) 03/02/21 21:25 Basophils % (Manual) 1.0 % (0.0-1.8) 03/02/21 21:25 Metamyelocytes % 1.0 % 03/02/21 21:25 Nucleated RBC % Not Reportable 03/02/21 21:25 Seg Neutrophils # Man 7.3 K/mm3 (1.8-7.7) 03/02/21 21:25 Band Neutrophils # 0.1 K/mm3 03/02/21 21:25 Lymphocytes # (Manual) 2.4 K/mm3 (1.2-5.4) 03/02/21 21:25 Abs React Lymphs (Man) 0.0 K/mm3 03/02/21 21:25 Monocytes # (Manual) 0.3 K/mm3 (0.0-0.8) 03/02/21 21:25 Eosinophils # (Manual) 0.4 K/mm3 (0.0-0.4) 03/02/21 21:25 Basophils # (Manual) 0.1 K/mm3 (0.0-0.1) 03/02/21 21:25 Metamyelocytes # 0.1 K/mm3 03/02/21 21:25 Myelocytes # 0.0 K/mm3 03/02/21 21:25 Promyelocytes # 0.0 K/mm3 03/02/21 21:25 Blast Cells # 0.0 K/mm3 03/02/21 21:25 WBC Morphology Not Reportable 03/02/21 21:25 Hypersegmented Neuts Not Reportable 03/02/21 21:25 Hyposegmented Neuts Not Reportable 03/02/21 21:25 Hypogranular Neuts Not Reportable 03/02/21 21:25 Smudge Cells Not Reportable 03/02/21 21:25 Toxic Granulation Not Reportable 03/02/21 21:25 Toxic Vacuolation Not Reportable 03/02/21 21:25 Dohle Bodies Not Reportable 03/02/21 21:25 Pelger-Huet Anomaly Not Reportable 03/02/21 21:25 Vargas Rods Not Reportable 03/02/21 21:25 Platelet Estimate Cons 03/02/21 21:25 Clumped Platelets Not Reportable 03/02/21 21:25 Plt Clumps, EDTA Not Reportable 03/02/21 21:25 Large Platelets Rare 03/02/21 21:25 Giant Platelets Not Reportable 03/02/21 21:25 Platelet Satelliting Not Reportable 03/02/21 21:25 Plt Morphology Comment Not Reportable 03/02/21 21:25 RBC Morphology Not Reportable 03/02/21 21:25 Dimorphic RBCs Not Reportable 03/02/21 21:25 Polychromasia Not Reportable 03/02/21 21:25 Hypochromasia Not Reportable 03/02/21 21:25 Poikilocytosis Not Reportable 03/02/21 21:25 Anisocytosis Not Reportable 03/02/21 21:25 Microcytosis Not Reportable 03/02/21 21:25 Macrocytosis Not Reportable 03/02/21 21:25 Spherocytes Not Reportable 03/02/21 21:25 Pappenheimer Bodies Not Reportable 03/02/21 21:25 Sickle Cells Not Reportable 03/02/21 21:25 Target Cells Not Reportable 03/02/21 21:25 Tear Drop Cells Not Reportable 03/02/21 21:25 Ovalocytes Rare 03/02/21 21:25 Helmet Cells Not Reportable 03/02/21 21:25 Estrada-Grayson Bodies Not Reportable 03/02/21 21:25 Electra Rings Not Reportable 03/02/21 21:25 [place] Cells Not Reportable 03/02/21 21:25 Bite Cells Not Reportable 03/02/21 21:25 Crenated Cell Not Reportable 03/02/21 21:25 Elliptocytes Not Reportable 03/02/21 21:25 Acanthocytes (Spur) Not Reportable 03/02/21 21:25 Rouleaux Not Reportable 03/02/21 21:25 Hemoglobin C Crystals Not Reportable 03/02/21 21:25 Schistocytes Rare 03/02/21 21:25 Malaria parasites Not Reportable 03/02/21 21:25 Gaurang Bodies Not Reportable 03/02/21 21:25 Hem Pathologist Commnt No 03/02/21 21:25 Sodium 135 mmol/L (137-145) L 03/02/21 21:25 Potassium 4.9 mmol/L (3.6-5.0) 03/02/21 21:25 Chloride 100.2 mmol/L (98-107) 03/02/21 21:25 Carbon Dioxide 21 mmol/L (22-30) L 03/02/21 21:25 Anion Gap 19 mmol/L 03/02/21 21:25 BUN 69 mg/dL (7-17) H 03/02/21 21:25 Creatinine 4.4 mg/dL (0.6-1.2) H 03/02/21 21:25 Estimated GFR 12 ml/min 03/02/21 21:25 BUN/Creatinine Ratio 16 % 03/02/21 21:25 Glucose 249 mg/dL (65-100) H 03/02/21 21:25 Hemoglobin A1c 8.5 % (4-6) H 03/02/21 21:25 Calcium 9.0 mg/dL (8.4-10.2) 03/02/21 21:25 Total Bilirubin < 0.20 mg/dL (0.1-1.2) 03/02/21 21:25 AST 20 units/L (5-40) 03/02/21 21:25 ALT 20 units/L (7-56) 03/02/21 21:25 Alkaline Phosphatase 212 units/L (35-129) H 03/02/21 21:25 Total Protein 7.8 g/dL (6.3-8.2) 03/02/21 21:25 Albumin 3.9 g/dL (3.9-5) 03/02/21 21:25 Albumin/Globulin Ratio 1.0 % 03/02/21 21:25 HCG, Quant 4.11 mIU/mL (0-4) H 03/02/21 21:25 Urine Color Straw (Yellow) 03/02/21 Unknown Urine Turbidity Clear (Clear) 03/02/21 Unknown Urine pH 6.0 (5.0-7.0) 03/02/21 Unknown Ur Specific [place] 1.005 (1.003-1.030) 03/02/21 Unknown Urine Protein 100 mg/dl mg/dL (Negative) 03/02/21 Unknown Urine Glucose (UA) >=500 mg/dL (Negative) 03/02/21 Unknown Urine Ketones Neg mg/dL (Negative) 03/02/21 Unknown Urine Blood Sm (Negative) 03/02/21 Unknown Urine Nitrite Neg (Negative) 03/02/21 Unknown Urine Bilirubin Neg (Negative) 03/02/21 Unknown Urine Urobilinogen < 2.0 mg/dL (<2.0) 03/02/21 Unknown Ur Leukocyte Esterase Neg (Negative) 03/02/21 Unknown Urine WBC (Auto) 3.0 /HPF (0.0-6.0) 03/02/21 Unknown Urine RBC (Auto) 1.0 /HPF (0.0-6.0) 03/02/21 Unknown Assessment and Plan Assessment and plan: Acute on chronic kidney disease -Cr on admission 4.4 (baseline creatinine 1.5 on 01/2019) -History of CKD (unsure staging) -Hydrate with IVF -Avoid nephrotoxic agents -Renal dose all meds -Monitor renal function -Inpatient nephrology consulted Elevated hCG -In postmenopausal female -[employer]AD[employer] consult pending HTN -Monitor BP -Resume home hypertensive meds DM2 -Uncontrolled -HgbA1c -POC BG monitoring -SSI coverage prn -HgbA1C pending Chronic anemia -Likely secondary to CKD -Hemoglobin on admission 9.2 -No s/s of active bleeding -Continue to monitor hemoglobin -Transfuse as needed History of sarcoidosis -Noted -Albuterol as needed DVT and GI PPX -On Heparin and Pepcid Advance Directives: No VTE prophylaxis?: Chemical, Mechanical Plan of care discussed with patient/family: Yes
[2021-03-03] MEDS ORDERED: ALBUTEROL 8.5 GM MDI INHALATION IH PRN (02:46)
[2021-03-03] MEDS ORDERED: INSULIN GLARGINE 100 UNITS/ML SUB-Q SCH (08:00)
--- NOTE | 2021-03-03 09:42 | Consultation ---
History of Present Illness - Reason for Consult Consult date: 03/03/21 acute renal failure, chronic renal failure - History of Present Illness The patient is a 61 YO female, known to our service, with history significant for Hypertension, uncontrolled ycu-haikojj-odpjglhpw DM, arthritis, chronic anemia, Sarcoidosis and CKD-4 who presented to [facility] ED 03/02 with complaints of abnormal lab values. Patient recently had blood work at her PCP's office and found to have K of 6. She was advised to report to the ED. Patient denies N, V, D, fever, cough, polyphasia, polydipsia, dysuria, hematuria, chest pain, shortness of breath, flank pain or sick contacts. Labs; K 4.9, Creat 4.4, BUN 69 and bicarb 21. Past History Past Medical History: anemia, arthritis, diabetes, hypertension, sarcoidosis Past Surgical History: Other (D&C x2, neck biopsy, left knee surgery, right eye surgery, left fifth digit repair) Social history: lives with family (2 daughters and 3 grandsons), full code. denies: smoking, alcohol abuse, prescription drug abuse, IV drug use Family history: hypertension Medications and Allergies Allergies Allergy/AdvReac Type Severity Reaction Status Date / Time No Known Allergies Allergy Verified 03/02/21 20:24 Home Medications Medication Instructions Recorded Confirmed Last Taken Type Gabapentin 600 mg PO TID PRN 02/25/16 02/25/16 1 Day Ago History ~02/24/16 HumaLOG VIAL 42 unit SQ DAILY 02/25/16 02/25/16 1 Day Ago History ~02/24/16 Bacitracin Zinc Oint [Antibiotic 20 applic TP BID #1 tube 11/15/17 Unknown Rx Oint] Sulfamethoxazole/Trimethoprim 1 each PO BID #14 tablet 11/15/17 Unknown Rx [Bactrim DS TAB] predniSONE 10 mg PO QDAY #5 tab 11/15/17 Unknown Rx amLODIPine 10 mg PO QDAY tablet 03/03/21 Unknown Rx Active Meds: Active Medications Acetaminophen (Acetaminophen 325 Mg Tab) 650 mg PO Q4H PRN PRN Reason: Pain MILD(1-3)/Fever >100.5/JUAREZ Albuterol (Albuterol 8.5 Gm Mdi Inhalation) 2 puff IH Q4HRT PRN PRN Reason: Shortness Of Breath Amlodipine Besylate (Amlodipine 10 Mg Tab) 10 mg PO QDAY [facility] Dextrose (Dextrose 50% In Water (25gm) 50 Ml Syringe) 50 ml IV Q30MIN PRN; Protocol PRN Reason: Hypoglycemia Docusate Sodium (Docusate Sodium 100 Mg Cap) 100 mg PO BID [facility] Famotidine (Famotidine 10 Mg Tab) 10 mg PO BID [facility] Heparin Sodium (Porcine) (Heparin 5,000 Unit/1 Ml Vial) 5,000 unit SUB-Q Q12HR [facility] Sodium Chloride (Nacl 0.45% 1000 Ml) 1,000 mls @ 100 mls/hr IV DIRECT [facility] Insulin Glargine (Insulin Glargine 100 Units/Ml) 10 units SUB-Q QAMDIAB [facility] Insulin Human Lispro (Insulin Lispro 100 Unit/Ml) 0 unit SUB-Q ACHS [facility]; Protocol Morphine Sulfate (Morphine 4 Mg/1 Ml Inj) 4 mg IV Q4H PRN PRN Reason: Pain , Severe (7-10) Naloxone HCl (Naloxone 0.4 Mg/1 Ml Inj) 0.1 mg IV Q2MIN PRN PRN Reason: Res Rate </= 8 or 02 SAT < 92% Ondansetron HCl (Ondansetron 4 Mg/2 Ml Inj) 4 mg IV Q8H PRN PRN Reason: Nausea And Vomiting Oxycodone/Acetaminophen (Oxycodone /Acetaminophen 5-325mg Tab) 1 tab PO Q6H PRN PRN Reason: Pain, Moderate (4-6) Sodium Chloride (Sodium Chloride 0.9% 10 Ml Flush Syringe) 10 ml IV BID [facility] Sodium Chloride (Sodium Chloride 0.9% 10 Ml Flush Syringe) 10 ml IV PRN PRN PRN Reason: LINE FLUSH Review of Systems All systems: negative Exam - Vital Signs Vital signs: Vital Signs Temp Pulse Resp BP Pulse Ox 98.4 F 94 H 16 168/83 100 03/02/21 20:30 03/02/21 20:30 03/02/21 20:30 03/02/21 20:30 03/02/21 20:30 Results - Lab Results 03/02/21 21:25 03/02/21 21:25 Most recent lab results Calcium 9.0 mg/dL (8.4-10.2) 03/02/21 21:25 Assessment and Plan 1. Hyperkalemia: In the setting of CKD-4. K level is better now. Discussed low potassium diet. 2. CKD stage 4: Likely 2/2 diabetic nephropathy. Monitor renal function. Avoid nephrotoxic agents. Meds dosage based on GFR. 3. FEN: Mild metabolic acidosis, in the setting of CKD, monitor. Monitor lytes and volume status. 4. Diabetes mellitus type 2: Monitor. 5. Hypertension, POA: Monitor BP. Adjust meds as needed. 6. Anemia, POA: Monitor. Subjective: Patient was seen and examined at the bedside. Examination: General appearance: well-developed, appears stated age, no distress HEENT: atraumatic Neck: trachea midline Respiratory: ctab Heart: S1S2, regular, no murmur Abdomen: soft, bowel sounds heard, NT Integumentary: no rash Neurologic: AO, able to move extremities Ext: no edema
[2021-03-03] MEDS ORDERED: FAMOTIDINE 10 MG TAB PO SCH (10:00)
[2021-03-03] MEDS ORDERED: DOCUSATE SODIUM 100 MG CAP PO SCH (10:00)
[2021-03-03] MEDS ORDERED: amLODIPine 10 MG TAB PO SCH (10:00)
[2021-03-03] MEDS ORDERED: HEPARIN 5,000 UNIT/1 ML VIAL SUB-Q SCH (10:00)
--- NOTE | 2021-03-03 11:12 | Progress Note ---
Assessment and Plan Assessment and plan: Acute on chronic kidney disease -Cr on admission 4.4 (baseline creatinine 1.5 on 01/2019) -History of CKD (unsure staging) -Hydrate with IVF -Avoid nephrotoxic agents -Renal dose all meds -Monitor renal function -Inpatient nephrology consulted Elevated hCG -In postmenopausal female -EDITOR MAP consult pending HTN -Monitor BP -Resume home hypertensive meds DM2 -Uncontrolled -HgbA1c -POC BG monitoring -SSI coverage prn -HgbA1C pending Chronic anemia -Likely secondary to CKD -Hemoglobin on admission 9.2 -No s/s of active bleeding -Continue to monitor hemoglobin -Transfuse as needed History of sarcoidosis -Noted -Albuterol as needed DVT and GI PPX -On Heparin and Pepcid History Interval history: No new issues overnight. Hospitalist Physical - Constitutional Vitals: Temp Pulse Resp BP Pulse Ox 97.2 F L 87 16 157/86 100 03/03/21 10:28 03/03/21 10:28 03/03/21 10:28 03/03/21 10:28 03/03/21 10:28 General appearance: Present: no acute distress, well-nourished - EENT Eyes: Present: PERRL, EOM intact ENT: hearing intact, clear oral mucosa, dentition normal - Neck Neck: Present: supple, normal ROM - Respiratory Respiratory effort: normal Respiratory: bilateral: CTA - Cardiovascular Rhythm: regular Heart Sounds: Present: S1 & S2. Absent: gallop, rub - Extremities Extremities: no ischemia, No edema, Full ROM - Abdominal General gastrointestinal: soft, non-tender, non-distended, normal bowel sounds - Integumentary Integumentary: Present: clear, warm, dry - Neurologic Neurologic: CNII-XII intact, moves all extremities Results - Labs CBC & Chem 7: 03/02/21 21:25 03/02/21 21:25 Labs: Laboratory Last Values WBC 10.8 K/mm3 (4.5-11.0) 03/02/21 21: RBC 3.23 M/mm3 (3.65-5.03) L 03/02/21 21:25 Hgb 9.2 gm/dl (10.1-14.3) L 03/02/21 21: Hct 27.9 % (30.3-42.9) L 03/02/21 21:25 MCV 87 fl (79-97) 03/02/21 21:25 MCH 29 pg (28-32) 03/02/21 21:25 MCHC 33 % (30-34) 03/02/21 21:25 RDW 14.4 % (13.2-15.2) 03/02/21 21:25 Plt Count 346 K/mm3 (140-440) 03/02/21 21:25 Add Manual Diff Complete 03/02/21 21:25 Total Counted 100 03/02/21 21:25 Seg Neuts % (Manual) 68.0 % (40.0-70.0) 03/02/21 21:25 Band Neutrophils % 1.0 % 03/02/21 21: Lymphocytes % (Manual) 22.0 % (13.4-35.0) 03/02/21 21: Monocytes % (Manual) 3.0 % (0.0-7.3) 03/02/21 21: Eosinophils % (Manual) 4.0 % (0.0-4.3) 03/02/21 21:25 Basophils % (Manual) 1.0 % (0.0-1.8) 03/02/21 21:25 Metamyelocytes % 1.0 % 03/02/21 21:25 Nucleated RBC % Not Reportable 03/02/21 21:25 Seg Neutrophils # Man 7.3 K/mm3 (1.8-7.7) 03/02/21 21:25 Band Neutrophils # 0.1 K/mm3 03/02/21 21:25 Lymphocytes # (Manual) 2.4 K/mm3 (1.2-5.4) 03/02/21 21:25 Abs React Lymphs (Man) 0.0 K/mm3 03/02/21 21:25 Monocytes # (Manual) 0.3 K/mm3 (0.0-0.8) 03/02/21 21:25 Eosinophils # (Manual) 0.4 K/mm3 (0.0-0.4) 03/02/21 21:25 Basophils # (Manual) 0.1 K/mm3 (0.0-0.1) 03/02/21 21:25 Metamyelocytes # 0.1 K/mm3 03/02/21 21:25 Myelocytes # 0.0 K/mm3 03/02/21 21:25 Promyelocytes # 0.0 K/mm3 03/02/21 21:25 Blast Cells # 0.0 K/mm3 03/02/21 21:25 WBC Morphology Not Reportable 03/02/21 21:25 Hypersegmented Neuts Not Reportable 03/02/21 21:25 Hyposegmented Neuts Not Reportable 03/02/21 21:25 Hypogranular Neuts Not Reportable 03/02/21 21:25 Smudge Cells Not Reportable 03/02/21 21:25 Toxic Granulation Not Reportable 03/02/21 21:25 Toxic Vacuolation Not Reportable 03/02/21 21:25 Dohle Bodies Not Reportable 03/02/21 21:25 Pelger-Huet Anomaly Not Reportable 03/02/21 21:25 Vargas Rods Not Reportable 03/02/21 21:25 Platelet Estimate Cons 03/02/21 21:25 Clumped Platelets Not Reportable 03/02/21 21:25 Plt Clumps, EDTA Not Reportable 03/02/21 21:25 Large Platelets Rare 03/02/21 21:25 Giant Platelets Not Reportable 03/02/21 21:25 Platelet Satelliting Not Reportable 03/02/21 21:25 Plt Morphology Comment Not Reportable 03/02/21 21:25 RBC Morphology Not Reportable 03/02/21 21:25 Dimorphic RBCs Not Reportable 03/02/21 21:25 Polychromasia Not Reportable 03/02/21 21:25 Hypochromasia Not Reportable 03/02/21 21:25 Poikilocytosis Not Reportable 03/02/21 21:25 Anisocytosis Not Reportable 03/02/21 21:25 Microcytosis Not Reportable 03/02/21 21:25 Macrocytosis Not Reportable 03/02/21 21:25 Spherocytes Not Reportable 03/02/21 21:25 Pappenheimer Bodies Not Reportable 03/02/21 21:25 Sickle Cells Not Reportable 03/02/21 21:25 Target Cells Not Reportable 03/02/21 21:25 Tear Drop Cells Not Reportable 03/02/21 21:25 Ovalocytes Rare 03/02/21 21:25 Helmet Cells Not Reportable 03/02/21 21:25 Estrada-[place] Bodies Not Reportable 03/02/21 21:25 [place] Rings Not Reportable 03/02/21 21:25 Bong Cells Not Reportable 03/02/21 21:25 Bite Cells Not Reportable 03/02/21 21:25 Crenated Cell Not Reportable 03/02/21 21:25 Elliptocytes Not Reportable 03/02/21 21:25 Acanthocytes (Spur) Not Reportable 03/02/21 21:25 Rouleaux Not Reportable 03/02/21 21:25 Hemoglobin C Crystals Not Reportable 03/02/21 21:25 Schistocytes Rare 03/02/21 21:25 Malaria parasites Not Reportable 03/02/21 21:25 Gaurang Bodies Not Reportable 03/02/21 21:25 Hem Pathologist Commnt No 03/02/21 21:25 Sodium 135 mmol/L (137-145) L 03/02/21 21:25 Potassium 4.9 mmol/L (3.6-5.0) 03/02/21 21:25 Chloride 100.2 mmol/L (98-107) 03/02/21 21:25 Carbon Dioxide 21 mmol/L (22-30) L 03/02/21 21:25 Anion Gap 19 mmol/L 03/02/21 21:25 BUN 69 mg/dL (7-17) H 03/02/21 21:25 Creatinine 4.4 mg/dL (0.6-1.2) H 03/02/21 21:25 Estimated GFR 12 ml/min 03/02/21 21:25 BUN/Creatinine Ratio 16 % 03/02/21 21:25 Glucose 249 mg/dL (65-100) H 03/02/21 21:25 POC Glucose 259 mg/dL (70-105) H 03/03/21 06:39 Hemoglobin A1c 8.5 % (4-6) H 03/02/21 21:25 Calcium 9.0 mg/dL (8.4-10.2) 03/02/21 21:25 Total Bilirubin < 0.20 mg/dL (0.1-1.2) 03/02/21 21:25 AST 20 units/L (5-40) 03/02/21 21:25 ALT 20 units/L (7-56) 03/02/21 21:25 Alkaline Phosphatase 212 units/L (35-129) H 03/02/21 21:25 Total Protein 7.8 g/dL (6.3-8.2) 03/02/21 21:25 Albumin 3.9 g/dL (3.9-5) 03/02/21 21:25 Albumin/Globulin Ratio 1.0 % 03/02/21 21:25 HCG, Quant 4.11 mIU/mL (0-4) H 03/02/21 21:25 Urine Color Straw (Yellow) 03/02/21 Unknown Urine Turbidity Clear (Clear) 03/02/21 Unknown Urine pH 6.0 (5.0-7.0) 03/02/21 Unknown Ur Specific [place] 1.005 (1.003-1.030) 03/02/21 Unknown Urine Protein 100 mg/dl mg/dL (Negative) 03/02/21 Unknown Urine Glucose (UA) >=500 mg/dL (Negative) 03/02/21 Unknown Urine Ketones Neg mg/dL (Negative) 03/02/21 Unknown Urine Blood Sm (Negative) 03/02/21 Unknown Urine Nitrite Neg (Negative) 03/02/21 Unknown Urine Bilirubin Neg (Negative) 03/02/21 Unknown Urine Urobilinogen < 2.0 mg/dL (<2.0) 03/02/21 Unknown Ur Leukocyte Esterase Neg (Negative) 03/02/21 Unknown Urine WBC (Auto) 3.0 /HPF (0.0-6.0) 03/02/21 Unknown Urine RBC (Auto) 1.0 /HPF (0.0-6.0) 03/02/21 Unknown Active Medications - Current Medications Current Medications: Generic Name Dose Route Start Last Admin Trade Name Freq PRN Reason Stop Dose Admin Acetaminophen 650 mg 03/02/21 23:59 Acetaminophen 325 Mg Tab PO Q4H PRN Pain MILD(1-3)/Fever >100.5/JUAREZ Albuterol 2 puff 03/03/21 02:46 Albuterol 8.5 Gm Mdi Inhalation IH Q4HRT PRN Shortness Of Breath Amlodipine Besylate 10 mg 03/03/21 10:00 Amlodipine 10 Mg Tab PO QDAY VIOLETTA Dextrose 50 ml 03/02/21 23:59 Dextrose 50% In Water (25gm) 50 Ml Syringe IV Q30MIN PRN Hypoglycemia Protocol Docusate Sodium 100 mg 03/03/21 10:00 Docusate Sodium 100 Mg Cap PO BID [facility] Famotidine 10 mg 03/03/21 10:00 Famotidine 10 Mg Tab PO BID [facility] Heparin Sodium (Porcine) 5,000 unit 03/03/21 10:00 Heparin 5,000 Unit/1 Ml Vial SUB-Q Q12HR [facility] Sodium Chloride 1,000 mls @ 100 mls/hr 03/02/21 23:45 Nacl 0.45% 1000 Ml IV DIRECT [facility] Insulin Glargine 10 units 03/03/21 08:00 Insulin Glargine 100 Units/Ml SUB-Q QAMDIAB [facility] Insulin Human Lispro 0 unit 03/03/21 07:30 Insulin Lispro 100 Unit/Ml SUB-Q ACHS [facility] Protocol Morphine Sulfate 4 mg 03/02/21 23:59 Morphine 4 Mg/1 Ml Inj IV Q4H PRN Pain , Severe (7-10) Naloxone HCl 0.1 mg 03/02/21 23:59 Naloxone 0.4 Mg/1 Ml Inj IV Q2MIN PRN Res Rate </= 8 or 02 SAT < 92% Ondansetron HCl 4 mg 03/02/21 23:59 Ondansetron 4 Mg/2 Ml Inj IV Q8H PRN Nausea And Vomiting Oxycodone/Acetaminophen 1 tab 03/02/21 23:59 Oxycodone /Acetaminophen 5-325mg Tab PO Q6H PRN Pain, Moderate (4-6) Sodium Chloride 10 ml 03/03/21 10:00 Sodium Chloride 0.9% 10 Ml Flush Syringe IV BID [facility] Sodium Chloride 10 ml 03/02/21 23:59 Sodium Chloride 0.9% 10 Ml Flush Syringe IV PRN PRN LINE FLUSH
[2021-03-03] MEDS: INSULIN LISPRO 100 UNIT/ML SUB-Q SCH ×2 (12:49→18:41)
[2021-03-03 13:06] VITALS: BP 151/76
--- NOTE | 2021-03-03 15:08 | Ultrasound Report ---
PELVIC ULTRASOUND HISTORY: Elevated beta hCG in postmenopausal female. COMPARISON: None. TECHNIQUE: Routine transvaginal OB ultrasound performed. FINDINGS: Uterus: The uterus is retroverted and measures 7.5 x 4.2 x 6.5 cm. There is a 5 x 7 x 8 mm round hypo echoic lesion within the anterior uterine fundus. Additionally, there is a 23 x 18 x 22 cm partially calcified lesion within the posterior uterine fundus. These are both suspected represent fibroids, li mamadou intramural. Endometrial stripe is within the upper limits of normal measuring 5 mm. The right ovary measures 3.6 x 2.1 x 1.7 cm and the left ovary measures 3.5 x 2.4 x 2.3 cm. Both ovar ies appear slightly prominent size in this postmenopausal patient. Associated with the left ovary is a vague 3.2 x 1.5 x 2.1 cm hypoechoic area which appears to demonstrate slightly decreased vascularit y compared to left ovary. Vascular flow is demonstrated to both ovaries. No free fluid within the visualized pelvis. IMPRESSION: Both ovaries are slightly prominent in size in this postmenopausal patient. Associated with the left ovary is a poorly defined 3.2 x 1.5 x 2.1 cm hypoechoic lesion. Consider further evaluation with MRI. Two intramural fibroids, as described above. Signer Name: Matthew Crowe MD Signed: 03/03/2021 3:03 PM Workstation Name: [id number]
--- NOTE | 2021-03-03 16:20 | Discharge Summary ---
Providers - Providers Date of Admission: 03/03/21 11:32 Date of discharge: 03/03/21 Attending physician: JOSE LUIS THOMSON 03/03/21 02:38 Consult to Physician [CONS] Routine Comment: Consulting Provider: MARY SHAHID Physician Instructions: Reason For Exam: Elevated Hcg, postmenopausal female Primary care physician: LITIGATION SUPPORT ANALYST Hospitalization Reason for admission: Hyperkalemia, CKD Condition: Stable Hospital course: 61-year-old female with history of hypertension, uncontrolled sdl-lysqebd-uloz ndent diabetes, arthritis, chronic anemia, and sarcoidosis who presents [facility] with complaints of abnormal lab values. Patient stated she was advised to report to the ED after presenting to urgent care and was found to have abnormal lab values. Specifically patient reports she was told by urgent care provider that she had a potassium level of 6.0, creatinine of 3.5, and BUN was in the 50s. Patient endorses chronic kidney disease, has seen a solar energy consultant and designer in the past, but denies taking any medications for renal failure. Pt was seen by Nephrology in consultation after admission. Dr. Musa reports CKD is stable from his most recent office values and that hyperkalemia likely from hemolyzed sample as the potassium has been normal here. Therefore he recommends d/c home with f/u. D/C time 32 min Disposition: 01 HOME / SELF CARE / HOMELESS Final Discharge Diagnosis (Prints w/discharge instructions): CKD, Core Measure Documentation - Palliative Care Palliative Care/ Comfort Measures: Not Applicable - Core Measures Any of the following diagnoses?: none Exam - Constitutional Vitals: Temp Pulse Resp BP Pulse Ox 98.2 F 92 H 16 151/76 99 03/03/21 13:00 03/03/21 13:00 03/03/21 13:00 03/03/21 13:02 03/03/21 13:00 General appearance: Present: no acute distress, well-nourished - EENT Eyes: Present: PERRL ENT: hearing intact, clear oral mucosa - Neck Neck: Present: supple, normal ROM - Respiratory Respiratory effort: normal Respiratory: bilateral: CTA - Cardiovascular Heart Sounds: Present: S1 & S2. Absent: rub, click - Extremities Extremities: pulses symmetrical, No edema Peripheral Pulses: within normal limits - Abdominal General gastrointestinal: Present: soft, non-tender, non-distended, normal bowel sounds Female genitourinary: Present: normal - Integumentary Integumentary: Present: clear, warm, dry - Musculoskeletal Musculoskeletal: gait normal, strength equal bilaterally - Psychiatric Psychiatric: appropriate mood/affect, intact judgment & insight - Neurologic Neurologic: CNII-XII intact, moves all extremities Plan Activity: advance as tolerated Weight Bearing Status: Weight Bear as Tolerated Diet: renal Follow up with: PRIMARY CAREMD [Primary Care Provider] - 7 Days
--- NOTE | 2021-03-03 17:23 | Progress Note ---
Assessment and Plan her hcg level is basically wnl for a non- female. her fibroids are not clinically significant. 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 no further needs for bakery supervisor services. Subjective Date of service: 03/03/21 Principal diagnosis: elevated hcg, fibroid uterus, slightly enlarged ovaries Interval history: see h&P. Objective - Constitutional Vitals: Vital Signs - 12hr 03/03/21 03/03/21 03/03/21 10:12 10:28 12:45 Temperature 97.2 F L Pulse Rate 87 Respiratory 16 Rate Blood Pressure Blood Pressure 157/86 [Left] O2 Sat by Pulse 100 100 97 Oximetry 03/03/21 03/03/21 13:00 13:02 Temperature 98.2 F Pulse Rate 92 H Respiratory 16 Rate Blood Pressure 151/76 151/76 Blood Pressure [Left] O2 Sat by Pulse 99 Oximetry - Genitourinary Female genitourinary: deferred (tvs c/w fibroid uterus and slightly enlared ovaries.) - Labs CBC & Chem 7: 03/02/21 21:25 03/02/21 21:25 Labs: Abnormal lab results 03/02/21 03/02/21 03/02/21 Range/Units 21:25 21:25 21:25 RBC 3.23 L (3.65-5.03) M/mm3 Hgb 9.2 L (10.1-14.3) gm/dl Hct 27.9 L (30.3-42.9) % Sodium 135 L (137-145) mmol/L Carbon Dioxide 21 L (22-30) mmol/L BUN 69 H (7-17) mg/dL Creatinine 4.4 H (0.6-1.2) mg/dL Glucose 249 H (65-100) mg/dL POC Glucose (70-105) mg/dL Hemoglobin A1c (4-6) % Alkaline Phosphatase 212 H (35-129) units/L HCG, Quant 4.11 H (0-4) mIU/mL 03/02/21 03/03/21 03/03/21 Range/Units 21:25 06:39 11:35 RBC (3.65-5.03) M/mm3 Hgb (10.1-14.3) gm/dl Hct (30.3-42.9) % Sodium (137-145) mmol/L Carbon Dioxide (22-30) mmol/L BUN (7-17) mg/dL Creatinine (0.6-1.2) mg/dL Glucose (65-100) mg/dL POC Glucose 259 H 213 H (70-105) mg/dL Hemoglobin A1c 8.5 H (4-6) % Alkaline Phosphatase (35-129) units/L HCG, Quant (0-4) mIU/mL 03/03/21 Range/Units 16:27 RBC (3.65-5.03) M/mm3 Hgb (10.1-14.3) gm/dl Hct (30.3-42.9) % Sodium (137-145) mmol/L Carbon Dioxide (22-30) mmol/L BUN (7-17) mg/dL Creatinine (0.6-1.2) mg/dL Glucose (65-100) mg/dL POC Glucose 291 H (70-105) mg/dL Hemoglobin A1c (4-6) % Alkaline Phosphatase (35-129) units/L HCG, Quant (0-4) mIU/mL Medications & Allergies - Medications Allergies/Adverse Reactions: Allergies No Known Allergies Allergy (Verified 03/02/21 20:24) Home Medications: Home Medications Medication Instructions Recorded Confirmed Last Taken Type Gabapentin 600 mg PO TID PRN 02/25/16 02/25/16 1 Day Ago History ~02/24/16 HumaLOG VIAL 42 unit SQ DAILY 02/25/16 02/25/16 1 Day Ago History ~02/24/16 Bacitracin Zinc Oint [Antibiotic 20 applic TP BID #1 tube 11/15/17 Unknown Rx Oint] Sulfamethoxazole/Trimethoprim 1 each PO BID #14 tablet 11/15/17 Unknown Rx [Bactrim DS TAB] predniSONE 10 mg PO QDAY #5 tab 11/15/17 Unknown Rx amLODIPine 10 mg PO QDAY tablet 03/03/21 Unknown Rx Active Medications: Generic Name Dose Route Start Last Admin Trade Name Freq PRN Reason Stop Dose Admin Acetaminophen 650 mg 03/02/21 23:59 Acetaminophen 325 Mg Tab PO Q4H PRN Pain MILD(1-3)/Fever >100.5/JUAREZ Albuterol 2 puff 03/03/21 02:46 Albuterol 8.5 Gm Mdi Inhalation IH Q4HRT PRN Shortness Of Breath Amlodipine Besylate 10 mg 09/28/21 10:00 03/03/21 13:02 Amlodipine 10 Mg Tab PO 10 mg QDAY VIOLETTA Administration Dextrose 50 ml 03/02/21 23:59 Dextrose 50% In Water (25gm) 50 Ml Syringe IV Q30MIN PRN Hypoglycemia Protocol Docusate Sodium 100 mg 03/03/21 10:00 03/03/21 13:02 Docusate Sodium 100 Mg Cap PO 100 mg BID VIOLETTA Administration Famotidine 10 mg 03/03/21 10:00 03/03/21 13:02 Famotidine 10 Mg Tab PO 10 mg BID VIOLETTA Administration Heparin Sodium (Porcine) 5,000 unit 03/03/21 10:00 03/03/21 13:02 Heparin 5,000 Unit/1 Ml Vial SUB-Q 5,000 unit Q12HR VIOLETTA Administration Sodium Chloride 1,000 mls @ 100 mls/hr 03/02/21 23:45 Nacl 0.45% 1000 Ml IV DIRECT [facility] Insulin Glargine 10 units 03/03/21 08:00 03/03/21 12:50 Insulin Glargine 100 Units/Ml SUB-Q Not Given QAMDIAB [facility] Insulin Human Lispro 0 unit 03/03/21 07:30 03/03/21 12:49 Insulin Lispro 100 Unit/Ml SUB-Q Not Given ACHS [facility] Protocol Morphine Sulfate 4 mg 03/02/21 23:59 Morphine 4 Mg/1 Ml Inj IV Q4H PRN Pain , Severe (7-10) Naloxone HCl 0.1 mg 03/02/21 23:59 Naloxone 0.4 Mg/1 Ml Inj IV Q2MIN PRN Res Rate </= 8 or 02 SAT < 92% Ondansetron HCl 4 mg 03/02/21 23:59 Ondansetron 4 Mg/2 Ml Inj IV Q8H PRN Nausea And Vomiting Oxycodone/Acetaminophen 1 tab 03/02/21 23:59 Oxycodone /Acetaminophen 5-325mg Tab PO Q6H PRN Pain, Moderate (4-6) Sodium Chloride 10 ml 03/03/21 10:00 03/03/21 13:10 Sodium Chloride 0.9% 10 Ml Flush Syringe IV 10 ml BID VIOLETTA Administration Sodium Chloride 10 ml 03/02/21 23:59 Sodium Chloride 0.9% 10 Ml Flush Syringe IV PRN PRN LINE FLUSH
== END 2021-03-03 18:40 | disposition home or self-care (01) | DRG 683 ==
LOC: ED 18:53 → 4A 23:59 → 3A 03-03 11:19 → OBSVTOIN 03-03 11:32
PROVIDERS: ADMIT Internal Medicine Geriatric Medicine; ATTEND Hospitalist
DX: I12.9 Hypertensive chronic kidney disease with stage 1 through stage 4 chronic kidney disease, or unspecified chronic kidney disease (principal); N17.9 Acute kidney failure, unspecified; E11.22 Type 2 diabetes mellitus with diabetic chronic kidney disease; M19.90 Unspecified osteoarthritis, unspecified site; D64.9 Anemia, unspecified; Z82.49 Family history of ischemic heart disease and other diseases of the circulatory system; Z83.3 Family history of diabetes mellitus; Z79.4 Long term (current) use of insulin; N18.9 Chronic kidney disease, unspecified; D86.9 Sarcoidosis, unspecified; E87.5 Hyperkalemia; D25.9 Leiomyoma of uterus, unspecified
CPT/HCPCS: 36415; 76830; 80053; 81001; 82962; 83036; 84702; 85007; 85025; G0378; J1644; J1815; J7030

== ENCOUNTER 2021-03-24 05:54 | Day surgery (SDC) | payer MEDICAID ==
[2021-03-24] MEDS ORDERED: fentaNYL 100 MCG/2 ML INJ IV ONE (08:58)
[2021-03-24] MEDS ORDERED: SODIUM CHLORIDE 0.9% 250ML 250 ML IV NR (09:00)
[2021-03-24 09:03] LABS: Hematocrit 28.4 % (30.3-42.9); Hemoglobin 9.4 gm/dl (10.1-14.3); Mean Corpuscular HGB Conc 33 % (30-34); Mean Corpuscular Volume 87 fl (79-97); Platelet Count 355 K/mm3 (140-440); Red Blood Count 3.27 M/mm3 (3.65-5.03); Red Cell Distribution Width 13.7 % (13.2-15.2)
[2021-03-24 09:13] LABS: INR 0.91 (0.87-1.13)
[2021-03-24 09:24] LABS: Calcium 9.1 mg/dL (8.4-10.2)
[2021-03-24] MEDS ORDERED: MIDAZOLAM 5 MG/5 ML INJ MDV IV ONE (09:30)
[2021-03-24] MEDS ORDERED: SODIUM CHLORIDE 0.9% 500 ML 500 ML IV SCH (10:00)
--- NOTE | 2021-03-24 10:21 | Short Stay Summary ---
Short Stay Documentation Date of service: 03/24/21 Narrative H&P: 61-year-old female with past medical history of hypertension, diabetes, and stage IV chronic kidney disease who presents for renal biopsy. Risks, benefits, and alternatives discussed. - History Principal diagnosis: CKD stage IV Past Medical History: diabetes, hypertension, renal failure (CKD stage IV) Past Surgical History: No surgical history Social history: no significant social history - Allergies and Medications Current Medications: Allergies No Known Allergies Allergy (Verified 03/02/21 20:24) Home Medications Medication Instructions Recorded Confirmed Last Taken Type Gabapentin 100 mg PO DAILY PRN 02/25/16 02/25/16 1 Day Ago History ~02/24/16 HumaLOG VIAL 10 unit SQ DAILY 02/25/16 02/25/16 03/23/21 History 10 UNITS amLODIPine 10 mg PO QDAY tablet 03/03/21 03/24/21 03/23/21 Rx 10 MG Insulin Detemir (Nf) [Levemir 20 units SQ TID 03/24/21 03/24/21 03/23/21 History Flextouch (Nf)] 10 UNITS Iron [Iron 18 MG TAB] 18 mg PO DAILY 03/24/21 03/24/21 03/23/21 History 18 MG Vitamin B Complex [Balanced B-50] 1,000 mg PO DAILY 03/24/21 03/24/21 03/23/21 History 1 TAB Active Medications Sodium Chloride (Nacl 0.9% 500 Ml) 500 mls @ 50 mls/hr IV DIRECT VIOLETTA - Physical exam General appearance: no acute distress Lungs: Normal air movement Gastrointestinal: normal, normoactive bowel sounds - Hospital course Hospital course: EXAM: CT-guided nonfocal biopsy of the lower pole of the left kidney DATE: 03/24/2021 CAUSTIC STRENGTH INSPECTOR: ED EM MD INDICATION: Stage IV chronic kidney disease with request for renal biopsy MEDICATIONS: Please see nursing report for full details. DEVICES: Happyshop biopsy device CONTRAST: None PROCEDURE: The risks, benefits, and alternatives were discussed with the patient and her daughter; written informed consent was obtained. Patient was brought to the CT gantry and marking grid was applied and supervisor pit and auxiliaries imaging was performed. An appropriate site was then identified and marked. Timeout was performed and patient was sedated. Unfortunately, despite sedation, patient's blood pressure was quite elevated at 200/100+ making it necessary to administer antihypertensive agents to perform the biopsy. A total of 5 mg of metoprolol and 20 mg of hydralazine were provided. The patient's blood pressure at this point was adequate for procedure. Hay Stacker Operator imaging demonstrated adequate window for CT guided biopsy. Under CT guidance, 17-gauge coaxial device was brought adjacent to the left kidney and to core biopsies were obtained. Pathology was unavailable to determine adequacy. This was all done under intermittent CT guidance. Biopsy course were then provided in formalin and sent off for pathology review. Gelfoam slurry was then injected through the coaxial needle and afterwards the needle was removed. Pressure bandage applied. Patient tolerated the procedure well. No immediate postprocedural complication. FINDINGS: Successful left renal biopsy. IMPRESSION: 1. Successful nonfocal left renal biopsy. Patient tolerated the nonfocal left renal biopsy without issue. Blood pressure was temporarily low from antihypertensive medications, but then improved during her 4-hour monitored stay. At time of discharge her blood pressure was normal. Patient has minimal discomfort and is doing well. Ready for discharge - Disposition Condition at discharge: Good Disposition: 01 HOME / SELF CARE / HOMELESS Short Stay Discharge Plan Activity: advance as tolerated (Do not lift more than 10 pounds for 1 week) Diet: regular Wound: keep clean and dry Follow up with: SEBAS DE ANDA MD [Staff Physician] - 7 Days
[2021-03-24] MEDS ORDERED: METOPROLOL TARTRATE 5 MG/5 ML INJ IV ONE ×2 (10:50→10:53)
[2021-03-24] MEDS ORDERED: hydrALAZINE 20 MG/1 ML INJ ONE (10:58)
[2021-03-24] MEDS ORDERED: MIDAZOLAM 2 MG/2 ML INJ IV ONE (10:59)
[2021-03-24] MEDS ORDERED: hydrALAZINE 20 MG/1 ML INJ IV ONE (11:00)
--- NOTE | 2021-03-24 11:43 | Operative Report ---
Operative Report Operative Report: EXAM: CT-guided nonfocal biopsy of the lower pole of the left kidney DATE: 03/24/2021 CYTOTECHNOLOGIST: ED EM MD INDICATION: Stage IV chronic kidney disease with request for renal biopsy MEDICATIONS: Please see nursing report for full details. DEVICES: Mobi Rider biopsy device CONTRAST: None PROCEDURE: The risks, benefits, and alternatives were discussed with the patient and her daughter; written informed consent was obtained. Patient was brought to the CT gantry and marking grid was applied and liquor runner imaging was performed. An appropriate site was then identified and marked. Timeout was performed and patient was sedated. Unfortunately, despite sedation, patient's blood pressure was quite elevated at 200/100+ making it necessary to administer antihypertensive agents to perform the biopsy. A total of 5 mg of metoprolol and 20 mg of hydralazine were provided. The patient's blood pressure at this point was adequate for procedure. Blow Pit Operator imaging demonstrated adequate window for CT guided biopsy. Under CT guidance, 17-gauge coaxial device was brought adjacent to the left kidney and to core biopsies were obtained. Pathology was unavailable to determine adequacy. This was all done under intermittent CT guidance. Biopsy course were then provided in formalin and sent off for pathology review. Gelfoam slurry was then injected through the coaxial needle and afterwards the needle was removed. Pressure bandage applied. Patient tolerated the procedure well. No immediate postprocedural complication. FINDINGS: Successful left renal biopsy. IMPRESSION: 1. Successful nonfocal left renal biopsy.
[2021-03-24 14:17] VITALS: BP 144/80
--- NOTE | 2021-03-25 14:17 | Cat Scan Report ---
PLEASE SEE OPERATIVE REPORT FROM 03/24/21 AT 1130 MTDD
== END 2021-03-24 14:35 | disposition home or self-care (01) ==
LOC: CT 05:54 → CATHLABREC 05:54 → EDSTATUS 07:30 → CATHLABREC 14:35
PROVIDERS: ATTEND Internal Medicine Nephrology
DX: N18.4 Chronic kidney disease, stage 4 (severe) (principal); Z79.899 Other long term (current) drug therapy; Z98.890 Other specified postprocedural states
CPT/HCPCS: 36415; 50200; 77012; 80048; 85027; 85610; J0360; J2250; J3010; J7040

== ENCOUNTER 2021-05-20 07:15 | Day surgery (SDC) | payer MEDICAID ==
[~2021-05-20 07:15] MED LIST: ceFAZolin/STERILE WATER 2 GM/20 ML SYRINGE IV NR
[2021-05-20] MEDS: SODIUM CHLORIDE 0.9% 1000 ML 1,000 ML IV SCH (09:15)
[2021-05-20] MEDS ORDERED: SODIUM CHLORIDE 0.9% 1000 ML 1,000 ML ONE (09:18)
--- NOTE | 2021-05-20 09:18 | Anesthesia Day of Surgery ---
Anesthesia Day of Surgery - Day of Surgery Patient Examined: Yes Patient H&P Reviewed: Yes Patient is NPO: Yes
--- NOTE | 2021-05-20 09:23 | Anesthesia Consultation ---
Anesthesia Consult and Med Hx Date of service: 05/20/21 - Airway Anesthetic Teeth Evaluation: Chipped (Loose and missing) ROM Head & Neck: Adequate Mental/Hyoid Distance: Adequate Mallampati Class: Class III Intubation Access Assessment: Probably Good - Pre-Operative Health Status ASA Pre-Surgery Classification: ASA3 Nerve Block: IS (Block; GA if needed) - Pulmonary Hx Smoking: No Hx Respiratory Symptoms: No (+2FS) Hx Sleep Apnea: No - Cardiovascular System Hx Hypertension: Yes Hx Coronary Artery Disease: Yes (2 years ago. Mild CAD per pt) - Central Nervous System Hx Back Pain: Yes (Scoliosis) Hx Psychiatric Problems: Yes - Gastrointestinal Hx Gastroesophageal Reflux Disease: No - Endocrine Hx Renal Disease: Yes (CKD- STAGE 4) Hx End Stage Renal Disease: Yes Hx Liver Disease: No Hx Non-Insulin Dependent Diabetes: Yes (FBS 150) - Hematic Hx Anemia: Yes Hx Sickle Cell Disease: No - Other Systems Hx Alcohol Use: No Hx Substance Use: No Hx Cancer: No Hx Obesity: No
[2021-05-20 09:27] LABS: Hematocrit 28.4 % (30.3-42.9); Hemoglobin 8.7 gm/dl (10.1-14.3); Mean Corpuscular HGB Conc 31 % (30-34); Mean Corpuscular Volume 85 fl (79-97); Platelet Count 410 K/mm3 (140-440); Red Blood Count 3.34 M/mm3 (3.65-5.03); Red Cell Distribution Width 14.2 % (13.2-15.2)
[2021-05-20 09:55] LABS: Calcium 8.8 mg/dL (8.4-10.2)
[2021-05-20] MEDS ORDERED: BUPIVACAINE/PF (0.5%) 5 MG/1 ML 30 ML VIAL INFILTRATI ONE ×2 (10:21→10:22)
[2021-05-20] MEDS ORDERED: SODIUM CHLORIDE 0.9% 500 ML 500 ML ONE (10:22)
[2021-05-20] MEDS ORDERED: HEPARIN 10,000 UNITS/10 ML VIAL ONE (10:22)
[2021-05-20] MEDS ORDERED: fentaNYL 100 MCG/2 ML INJ IV SCH (10:30)
[2021-05-20] MEDS ORDERED: HYDROmorphone 1 MG/1 ML INJ IV PRN ×2 (10:30)
[2021-05-20] MEDS ORDERED: ONDANSETRON 4 MG/2 ML INJ IV PRN (10:30)
[2021-05-20] MEDS ORDERED: propofoL 200 MG/20 ML VIAL IV ONE ×2 (10:45)
[2021-05-20] MEDS ORDERED: LIDOCAINE MPF (2%) 20 MG/1 ML VIAL 5 ML ONE (10:48)
[2021-05-20] MEDS ORDERED: MIDAZOLAM 2 MG/2 ML INJ IV NR (11:00)
[2021-05-20] MEDS: HEPARIN 10,000 UNITS/10 ML VIAL IV ONE (11:21)
[2021-05-20] MEDS: SODIUM CHLORIDE 0.9% IRR 1,500 ML BOTTLE IR ONE (11:21)
[2021-05-20] MEDS: SODIUM CHLORIDE 0.9% IRR 500 ML BOTTLE IR ONE (11:21)
[2021-05-20] MEDS: SODIUM CHLORIDE 0.9% 250 ML IVPB IV ONE (11:21)
[2021-05-20] MEDS: SODIUM CHLORIDE 0.9% P/F 10 ML VIAL IV ONE (11:21)
[2021-05-20] MEDS: rifAMPin 600 MG VIAL IV ONE (11:21)
[2021-05-20] MEDS ORDERED: LIDOCAINE (1%) 10 MG/1 ML VIAL 20 ML MDV ONE (12:48)
--- NOTE | 2021-05-20 12:49 | Short Stay Summary ---
Short Stay Documentation Date of service: 05/20/21 Narrative H&P: See H&P - History H&P: obtained from office - Allergies and Medications Current Medications: Allergies No Known Allergies Allergy (Verified 05/13/21 16:18) Home Medications Medication Instructions Recorded Confirmed Last Taken Type Gabapentin 100 mg PO DAILY PRN 02/25/16 05/13/21 1 Day Ago History ~02/24/16 HumaLOG VIAL 10 unit SQ DAILY 02/25/16 05/13/21 03/23/21 History 10 UNITS amLODIPine 10 mg PO QDAY tablet 03/03/21 05/13/21 03/23/21 Rx 10 MG Insulin Detemir (Nf) [Levemir 20 units SQ DAILY 03/24/21 05/13/21 03/23/21 History Flextouch (Nf)] 10 UNITS Iron [Iron 18 MG TAB] 18 mg PO DAILY 03/24/21 05/13/21 03/23/21 History 18 MG Active Medications Cefazolin Sodium (Cefazolin/Sterile Water 2 Gm/20 Ml Syringe) 2 gm IV PREOP NR Stop: 05/20/21 21:00 Fentanyl (Fentanyl 100 Mcg/2 Ml Inj) 100 mcg IV ONCE@1030 VIOLETTA Stop: 05/20/21 21:00 Hydromorphone HCl (Hydromorphone 1 Mg/1 Ml Inj) 0.25 mg IV Q10MIN PRN PRN Reason: Pain, Moderate (4-6) Stop: 05/20/21 17:00 Hydromorphone HCl (Hydromorphone 1 Mg/1 Ml Inj) 0.5 mg IV Q10MIN PRN PRN Reason: Pain , Severe (7-10) Stop: 05/20/21 17:00 Sodium Chloride (Nacl 0.9% 1000 Ml) 1,000 mls @ 42 mls/hr IV DIRECT VIOLETTA Stop: 05/20/21 21:00 Midazolam HCl (Midazolam 2 Mg/2 Ml Inj) 2 mg IV PREOP NR Stop: 05/20/21 23:59 Ondansetron HCl (Ondansetron 4 Mg/2 Ml Inj) 4 mg IV ONCE PRN PRN Reason: Nausea And Vomiting Stop: 05/20/21 17:30 - Brief post op/procedure progress note Date of procedure: 05/20/21 Pre-op diagnosis: Chronic Renal Insufficiency Post-op diagnosis: same Procedure: Creation of Left Brachial Artery to Left Axillary Vein Arteriovenous Graft with 6 mm Bovine Artegraft Anesthesia: MAC, regional Surgeon: PAO BABB Estimated blood loss: minimal Pathology: none Condition: stable - Disposition Condition at discharge: Good Disposition: 01 HOME / SELF CARE / HOMELESS Short Stay Discharge Plan Activity: other (No heavy lifting with left arm for 2 weeks.) Wound: open to air, keep clean and dry, other (Okay to wash the left arm wounds with soap and water but do not soak in water for 2 weeks.) Follow up with: PAO BABB MD [Staff Physician] - 14 Days Prescriptions: HYDROcodone/APAP 7.5-325 [[place] 7.5/325] 1 each PO Q6HR PRN #40 tablet PRN Reason: Pain
--- NOTE | 2021-05-20 12:50 | Operative Report ---
Operative Report Operative Report: Date of procedure: 05/20/2021 Pre-operative diagnosis: Chronic Renal Insufficiency Post-operative diagnosis: Same Procedure(s): 1. Creation of Left Brachial Artery to Axillary Vein AV Graft with 6 mm Bovine Graft Artergraft Surgeon: Cole Gregg MD Cad Technician: None Anesthesia: Regional/MAC EBL: Minimal Counts: Correct Complications: None Condition: Stable Findings: Successful Creation of Left Arm AV Graft with Palpable Thrill and Palpable Radial Pulse at the Completion of the Case. Specimen: None Indication: The patient is a 61-year-old female with a history of chronic renal insufficiency who was not yet on hemodialysis however it is anticipated that she will require hemodialysis in the near future. She was worked up and found to not have adequate vein for creation of an arteriovenous fistula so she will require placement of an arteriovenous graft to avoid a permacath if she progr esses to hemodialysis. She was given the risk, benefits, and alternative procedures and consented to the procedure. Description of Procedure: Prior to being transported to the operating room the patient had a regional block of the left arm performed. After the block was performed the patient was transported to the operating room and adequately sedated. The patient's left arm was then prepped and draped in normal sterile fashion. A longitudinal incision was made on the medial aspect of the arm just proximal to the antecubital crease and carried down to the brachial artery using sharp di ssection. The brachial artery was dissected out circumferentially both proximally and distally and controlled with vessel loops. A second incision was created in longitudinal fashion on the medial aspect of the arm just distal to the axillary crease and carried down to the axillary vein using sharp dissection. Axillary vein was dissected out circumferentially and controlled with a vessel loop. I then used a Anny-Wick tunneler to tunnel from the brachial artery incision to the axillary vein incision and then pulled an 6 mm bovine through the tunnel. I infused with heparinized saline to ensure that it was not twisted or kinked. I put the brachial artery vessel loops on tension controlling the flow and then created an arteriotomy using an 11 blade and Stephens scissors. I beveled the graft and created an end-to-side anastomosis using 6-0 Prolene running fashion. I clamped the graft just proximal to the anastomosis and then released the vessel loops restoring flow in the brachial artery. I placed quick clot in incision to achieve hemostasis. I cut the proximal end of the graft to the appropriate length and beveled the graft in preparation for a venous anastomosis. I controlled the axillary vein a Satinsky clamp and created a venotomy using an 11 blade and Stephens scissors. I created an end to side anastomosis using a 6-0 Prolene in running fashion. Prior to completing the anastomosis I flushed the graft to ensure there was no thrombus and then completed the anastamosis. I released all clamps allowing flow into the AV graft which had an excellent thrill. I packed the wound with quick clot to achieve hemostasis. I closed both wounds in 2 layers using 3-0 Vicryl in running fashion in the deep dermal layer and 4-0 Monocryl in running fashion the subcuticular layer. I dressed both wounds with Dermabond. The patient tolerated the procedure well all sponge, needle, and instrument counts were correct. The patient was taken to recovery in stable condition.
--- NOTE | 2021-05-20 14:20 | Post Anesthesia Evaluation ---
- Post Anesthesia Evaluation Patient Participated: Yes Airway Patent: Yes Stable Respiratory Function: Yes Nausea/Vomiting: No Temp > 96.8F: Yes Pain Manageable: Yes Adequeate Hydration: Yes Anesthesia Complications: No Block Receding Appropriately: Yes Patient on Ventilator: No
[2021-05-20 19:35] VITALS: BP 139/76
== END 2021-05-20 14:41 | disposition home or self-care (01) ==
LOC: OR 07:15
PROVIDERS: ATTEND Surgery Vascular Surgery
DX: I12.0 Hypertensive chronic kidney disease with stage 5 chronic kidney disease or end stage renal disease (principal); E11.22 Type 2 diabetes mellitus with diabetic chronic kidney disease; N18.6 End stage renal disease; I25.10 Atherosclerotic heart disease of native coronary artery without angina pectoris; M41.9 Scoliosis, unspecified; E78.00 Pure hypercholesterolemia, unspecified; Z79.899 Other long term (current) drug therapy; Z98.890 Other specified postprocedural states
CPT/HCPCS: 36415; 36830; 64450; 80048; 85027; C1768; J0690; J1644; J2250; J2704; J3010; J3490; J7030; J7040; J7050; J7120; Q0162

== ENCOUNTER 2021-06-13 09:37 | Emergency (ER) | payer MEDICAID | END 2021-06-13 16:14 | disposition home or self-care (01) | LOC: ED 09:37 | DX: Z00.00 Encounter for general adult medical examination without abnormal findings (principal); Z53.21 Procedure and treatment not carried out due to patient leaving prior to being seen by health care provider ==

== ENCOUNTER 2021-06-19 13:33 | Inpatient (IN) | payer MEDICAID ==
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
[2021-06-19 15:52] LABS: Albumin 3.4 g/dL (3.9-5); Calcium 8.8 mg/dL (8.4-10.2)
[2021-06-19 15:54] LABS: Basophils # (Auto) 0.1 K/mm3 (0.0-0.1); Basophils % (Auto) 0.7 % (0.0-1.8); Eosinophils # (Auto) 0.3 K/mm3 (0.0-0.4); Eosinophils % (Auto) 3.5 % (0.0-4.3); Hematocrit 25.2 % (30.3-42.9); Hemoglobin 7.9 gm/dl (10.1-14.3); Lymphocytes # (Auto) 1.8 K/mm3 (1.2-5.4); Lymphocytes % (Auto) 21.5 % (13.4-35.0); Mean Corpuscular HGB Conc 32 % (30-34); Mean Corpuscular Volume 85 fl (79-97); Monocytes # (Auto) 0.7 K/mm3 (0.0-0.8); Monocytes % (Auto) 8.7 % (0.0-7.3); Platelet Count 349 K/mm3 (140-440); Red Blood Count 2.97 M/mm3 (3.65-5.03); Red Cell Distribution Width 14.2 % (13.2-15.2)
--- NOTE | 2021-06-19 15:59 | XRay Report ---
CHEST 2 VIEWS INDICATION / CLINICAL INFORMATION: Chest pain/SOB STUDY TIME: 1429 COMPARISON: 01/23/2019 FINDINGS: SUPPORT DEVICES: None. HEART / MEDIASTINUM: No significant abnormality. LUNGS / PLEURA: A mildly congested appearance is now seen without definite pulmonary edema. There may be minimal bilateral pleural effusions. No definite focal pneumonic infiltrates are noted. No pneumo thorax. ADDITIONAL FINDINGS: No significant additional findings. Signer Name: Bandar Sykes MD Signed: 06/19/2021 3:55 PM Workstation Name: [id number]
--- NOTE | 2021-06-19 16:01 | XRay Report ---
RIGHT GREAT TOE 4 VIEWS 1432 INDICATION: toe pain and swelling/wound COMPARISON: None available. FINDINGS: No fractures or dislocations are seen. No focal lesions are obvious. Mild tarsal degenerati ve changes are seen. No soft tissue gas or foreign bodies are identified. Signer Name: Bandar Sykes MD Signed: 06/19/2021 3:57 PM Workstation Name: [id number]
[2021-06-19] MEDS ORDERED: NON-FORMULARY EACH (Gabapentin Capsule) PO PRN (22:12)
[2021-06-19] MEDS ORDERED: HYDROcodone/ACETAMINOPHEN 7.5-325MG TAB PO PRN (22:12)
[2021-06-19] MEDS ORDERED: GABAPENTIN 100 MG CAP PO PRN (22:25)
[2021-06-20] MEDS ORDERED: cloNIDine 0.1 MG TAB PO ONE (01:36)
[2021-06-20] MEDS ORDERED: hydrALAZINE 20 MG/1 ML INJ IV PRN (01:37)
[2021-06-20 05:06] LABS: Hepatitis B Surface Antigen Non-Reactive (Negative)
[2021-06-20 05:28] LABS: Hepatitis C Virus Antibody Non-Reactive (NonReactive)
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
[2021-06-20] MEDS ORDERED: HYDROmorphone 1 MG/1 ML INJ IV PRN (08:00)
[2021-06-20] MEDS ORDERED: METOCLOPRAMIDE 10 MG/2 ML INJ IV PRN (08:00)
[2021-06-20] MEDS ORDERED: ONDANSETRON 4 MG/2 ML INJ IV PRN (08:00)
[2021-06-20] MEDS ORDERED: oxyCODONE /ACETAMINOPHEN 5-325MG TAB PO PRN (08:00)
[2021-06-20] MEDS ORDERED: INSULIN LISPRO 100 UNIT/ML SUB-Q SCH (08:00)
[2021-06-20] MEDS: INSULIN LISPRO 100 UNIT/ML SUB-Q SCH (08:03)
[2021-06-20 08:24] LABS: Basophils # (Auto) 0.1 K/mm3 (0.0-0.1); Basophils % (Auto) 0.8 % (0.0-1.8); Eosinophils # (Auto) 0.3 K/mm3 (0.0-0.4); Eosinophils % (Auto) 3.7 % (0.0-4.3); Hematocrit 25.9 % (30.3-42.9); Hemoglobin 8.1 gm/dl (10.1-14.3); Lymphocytes # (Auto) 1.4 K/mm3 (1.2-5.4); Lymphocytes % (Auto) 20.1 % (13.4-35.0); Mean Corpuscular HGB Conc 31 % (30-34); Mean Corpuscular Volume 87 fl (79-97); Monocytes # (Auto) 0.6 K/mm3 (0.0-0.8); Monocytes % (Auto) 8.3 % (0.0-7.3); Platelet Count 353 K/mm3 (140-440); Red Cell Distribution Width 14.2 % (13.2-15.2)
--- NOTE | 2021-06-20 08:38 | Event Note ---
Date: 06/20/21 Hemodialysis consent obtained from patient.
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
[2021-06-20 08:45] LABS: Alanine Aminotransferase 16 units/L (7-56); Albumin 3.3 g/dL (3.9-5); Blood Urea Nitrogen 65 mg/dL (7-17); Calcium 8.4 mg/dL (8.4-10.2); Hemolysis Index 16
[2021-06-20 08:46] LABS: BUN/Creatinine Ratio 12
[2021-06-20] MEDS ORDERED: SODIUM CHLORIDE 0.9% 100 ML IV PRN (09:00)
[2021-06-20] MEDS ORDERED: HEPARIN 10,000 UNITS/10 ML VIAL IV PRN (09:00)
[2021-06-20] MEDS: HEPARIN 5,000 UNIT/1 ML VIAL SUB-Q SCH ×2 (09:28→23:30)
[2021-06-20] MEDS ORDERED: NON-FORMULARY EACH (Iron [Iron 18 Mg Tab] 18 MG Tablet) PO SCH (10:00)
[2021-06-20] MEDS ORDERED: INSULIN DETEMIR 100 UNIT/ML SQ SCH (10:00)
[2021-06-20] MEDS ORDERED: INSULN SQ SCH (10:00)
[2021-06-20] MEDS ORDERED: HUMALOG 10 UNIT SQ SCH (10:00)
[2021-06-20] MEDS: amLODIPine 10 MG TAB PO SCH (10:32)
[2021-06-20] MEDS: INSULIN GLARGINE 100 UNITS/ML SUB-Q SCH ×2 (10:32→13:26)
[2021-06-20] MEDS: FERROUS SULFATE 300 MG (60MG Elemental Iron) / 5 mL ORAL LIQD PO SCH (10:32)
[2021-06-20] MEDS ORDERED: FUROSEMIDE 100 MG/10 ML INJ IV ONE (15:00)
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
[2021-06-21] MEDS ORDERED: diphenhydrAMINE 50 MG/ML VIAL IV ONE (01:27)
[2021-06-21 05:09] LABS: Basophils # (Auto) 0.1 K/mm3 (0.0-0.1); Basophils % (Auto) 0.7 % (0.0-1.8); Eosinophils # (Auto) 0.3 K/mm3 (0.0-0.4); Hematocrit 25.6 % (30.3-42.9); Hemoglobin 8.1 gm/dl (10.1-14.3); Lymphocytes # (Auto) 1.6 K/mm3 (1.2-5.4); Lymphocytes % (Auto) 19.6 % (13.4-35.0); Mean Corpuscular HGB Conc 31 % (30-34); Mean Corpuscular Volume 86 fl (79-97); Monocytes # (Auto) 0.9 K/mm3 (0.0-0.8); Monocytes % (Auto) 10.5 % (0.0-7.3); Platelet Count 382 K/mm3 (140-440); Red Blood Count 2.99 M/mm3 (3.65-5.03); Red Cell Distribution Width 14.1 % (13.2-15.2)
[2021-06-21 05:29] LABS: Calcium 8.4 mg/dL (8.4-10.2)
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
[2021-06-21] MEDS: INSULIN LISPRO 100 UNIT/ML SUB-Q SCH (10:16)
[2021-06-21] MEDS: INSULIN GLARGINE 100 UNITS/ML SUB-Q SCH (10:17)
[2021-06-21] MEDS: FUROSEMIDE 40 MG TAB PO SCH ×2 (10:39→18:35)
[2021-06-21] MEDS: amLODIPine 10 MG TAB PO SCH (10:41)
[2021-06-21] MEDS: FERROUS SULFATE 300 MG (60MG Elemental Iron) / 5 mL ORAL LIQD PO SCH (10:42)
[2021-06-21] MEDS: HEPARIN 5,000 UNIT/1 ML VIAL SUB-Q SCH ×2 (10:43→21:45)
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
[2021-06-21] MEDS: ACETAMINOPHEN 325 MG TAB PO PRN (21:37)
[2021-06-22] MEDS: FUROSEMIDE 40 MG TAB PO SCH ×2 (05:56→23:07)
[2021-06-22 06:03] LABS: Calcium 7.8 mg/dL (8.4-10.2)
[2021-06-22] MEDS: INSULIN LISPRO 100 UNIT/ML SUB-Q SCH (08:00)
[2021-06-22] MEDS: HEPARIN 5,000 UNIT/1 ML VIAL SUB-Q SCH ×2 (10:00→23:07)
[2021-06-22] MEDS: INSULIN GLARGINE 100 UNITS/ML SUB-Q SCH (10:00)
[2021-06-22] MEDS ORDERED: HEPARIN/NS 5000 UNIT/500ML 1,000 ML IR ONE (10:33)
[2021-06-22] MEDS ORDERED: HEPARIN 10,000 UNITS/10 ML VIAL ONE (10:33)
[2021-06-22] MEDS ORDERED: SODIUM CHLORIDE 0.9% 500 ML 500 ML ONE (10:50)
[2021-06-22] MEDS ORDERED: HEPARIN/NS 5000 UNIT/500ML 500 ML IR ONE (11:08)
[2021-06-22] MEDS: MIDAZOLAM 2 MG/2 ML INJ ONE ×3 (11:20→11:42)
[2021-06-22] MEDS: fentaNYL 100 MCG/2 ML INJ ONE ×3 (11:20→11:42)
[2021-06-22] MEDS: LIDOCAINE (2%) 20 MG/1 ML VIAL 20 ML MDV INFILTRATI ONE ×2 (11:21→11:25)
[2021-06-22] MEDS ORDERED: ceFAZolin/Water 2 GM/20 ML 2 GM/20 ML SYRINGE IV ONE (11:28)
[2021-06-22] MEDS ORDERED: fentaNYL 100 MCG/2 ML INJ ONE (11:46)
[2021-06-22] MEDS ORDERED: MIDAZOLAM 2 MG/2 ML INJ ONE (11:46)
[2021-06-22] MEDS ORDERED: hydrALAZINE 20 MG/1 ML INJ ONE (11:49)
--- NOTE | 2021-06-22 12:08 | Operative Report ---
Operative Report Operative Report: EXAM: 1. Ultrasound guided access of the left arm AV graft 2. Placement of a sheath towards the venous outflow 3. Fistulogram 4. Angioplasty of the venous anastomosis with an 8 mm x 40 mm angioplasty balloon, 9 mm x 40 mm angioplasty balloon, and 10 mm x 40 mm angioplasty balloon (peripheral dialysis access angioplasty) DATE: 06/22/2021 [employer]SEM[employer]ER: ED EM MD INDICATION: End-stage renal disease with left AV graft malfunction MEDICATIONS: Please see nursing report for full details. DEVICES: 8 mm x 40 mm angioplasty balloon 9 mm x 40 mm angioplasty balloon 10 mm x 40 mm angioplasty balloon PROCEDURE: The risks, benefits, and alternatives of the procedure were discussed and written informed consent was obtained. The patient was transported in stable condition to the angiography suite. The patient's left arm AV graft was assessed by ultrasound and was patent. The patient was prepped and draped in a sterile fashion. Under ultrasound guidance, the left arm AV graft was accessed with a 21-gauge micropuncture needle. The area was anesthetized prior to access. 0.018 inch wire was advanced through the micropuncture needle into the fistula and then the needle was exchanged for a 5 Mongolian transitional dilator. The inner dilator and wire were removed and a 0.035 inch wire was advanced through the venous outflow. The transitional dilator was exchanged for a 7 Mongolian short sheath. Fistulogram was performed of the venous outflow and central veins. Reflux into the arterial anastomosis was performed. Digital subtraction angiography demonstrated patency of the AV graft with patent brachial artery proximal and distal to the anastomosis with a patent arterial anastomosis. The AV graft is patent. There is a 50% stenosis at the venous anastomosis. The rest of the venous outflow and the central veins were patent. The patient is diffusely edematous with edema overlying the graft as well. 8 mm x 40 mm angioplasty balloon was used to perform angioplasty of the venous anastomosis at the same time a 0.018 inch wire was used as a cutting wire. Afterwards the venous anastomosis was sequentially dilated due to recoil with a 9 mm x 40 mm angioplasty balloon and ultimately a 10 mm x 40 mm angioplasty balloon. 10 mm x 40 mm angioplasty balloon provided a good result with less than 10% residual stenosis. The wire was removed and the site was closed with a 3-0 Vicryl suture. The sheath was then removed. Hemostasis was achieved with slight manual compression. The patient was transported from the angiography suite to the floor in stable condition. IMPRESSION: Successful peripheral dialysis access angioplasty as described above.
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
[2021-06-22] MEDS ORDERED: SODIUM CHLORIDE 0.9% 100 ML IV PRN (14:00)
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
[2021-06-22] MEDS: amLODIPine 10 MG TAB PO SCH (16:54)
[2021-06-22] MEDS: FERROUS SULFATE 300 MG (60MG Elemental Iron) / 5 mL ORAL LIQD PO SCH (17:11)
[2021-06-23] MEDS: FUROSEMIDE 40 MG TAB PO SCH ×2 (06:28→18:53)
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
--- NOTE | 2021-06-23 09:15 | Electrocardiograph Report ---
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
[2021-06-23] MEDS: INSULIN LISPRO 100 UNIT/ML SUB-Q SCH (17:22)
[2021-06-23] MEDS: amLODIPine 10 MG TAB PO SCH (17:22)
[2021-06-23] MEDS: FERROUS SULFATE 300 MG (60MG Elemental Iron) / 5 mL ORAL LIQD PO SCH (17:22)
[2021-06-23] MEDS: HEPARIN 5,000 UNIT/1 ML VIAL SUB-Q SCH ×2 (17:23→23:26)
[2021-06-23] MEDS: INSULIN GLARGINE 100 UNITS/ML SUB-Q SCH (17:23)
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
[2021-06-24] MEDS: INSULIN LISPRO 100 UNIT/ML SUB-Q SCH (07:23)
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
[2021-06-24] MEDS: EPOETIN ALFA-EPBX 10,000 UNIT/1 ML VIAL SUB-Q PRN (13:45)
[2021-06-24] MEDS: FERROUS SULFATE 300 MG (60MG Elemental Iron) / 5 mL ORAL LIQD PO SCH (16:24)
[2021-06-24] MEDS: HEPARIN 5,000 UNIT/1 ML VIAL SUB-Q SCH ×2 (16:24→21:01)
[2021-06-24] MEDS: amLODIPine 10 MG TAB PO SCH (16:24)
[2021-06-24] MEDS: INSULIN GLARGINE 100 UNITS/ML SUB-Q SCH (16:25)
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
[2021-06-24] MEDS: FUROSEMIDE 40 MG TAB PO SCH ×2 (18:28→20:21)
[2021-06-25] MEDS: FUROSEMIDE 40 MG TAB PO SCH ×2 (07:01→17:14)
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
[2021-06-25] MEDS: INSULIN LISPRO 100 UNIT/ML SUB-Q SCH (09:01)
[2021-06-25] MEDS: FERROUS SULFATE 300 MG (60MG Elemental Iron) / 5 mL ORAL LIQD PO SCH (09:54)
[2021-06-25] MEDS: HEPARIN 5,000 UNIT/1 ML VIAL SUB-Q SCH ×2 (09:54→21:31)
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
[2021-06-25] MEDS: ACETAMINOPHEN 325 MG TAB PO PRN (14:11)
[2021-06-25] MEDS: amLODIPine 10 MG TAB PO SCH (14:13)
[2021-06-25] MEDS: INSULIN GLARGINE 100 UNITS/ML SUB-Q SCH (17:07)
[2021-06-26 06:19] LABS: Hematocrit 23.7 % (30.3-42.9); Hemoglobin 7.4 gm/dl (10.1-14.3); Mean Corpuscular HGB Conc 31 % (30-34); Mean Corpuscular Volume 84 fl (79-97); Platelet Count 326 K/mm3 (140-440); Red Blood Count 2.83 M/mm3 (3.65-5.03)
[2021-06-26] MEDS: FUROSEMIDE 40 MG TAB PO SCH (06:28)
[2021-06-26 06:34] LABS: Calcium 8.1 mg/dL (8.4-10.2)
[2021-06-26] MEDS: INSULIN LISPRO 100 UNIT/ML SUB-Q SCH (07:55)
[2021-06-26] MEDS: INSULIN GLARGINE 100 UNITS/ML SUB-Q SCH (08:00)
[2021-06-26 08:31] LABS: Basophils % (Manual) 0 % (0.0-1.8); Platelet Estimate Consistent w Auto; RBC Morphology Normal; Total Cells Counted 100
[2021-06-26 09:08] VITALS: BP 151/71
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
[2021-06-26] MEDS: amLODIPine 10 MG TAB PO SCH (10:00)
[2021-06-26] MEDS: HEPARIN 5,000 UNIT/1 ML VIAL SUB-Q SCH (10:00)
[2021-06-26] MEDS: FERROUS SULFATE 300 MG (60MG Elemental Iron) / 5 mL ORAL LIQD PO SCH (10:00)
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
[2021-06-26] MEDS: EPOETIN ALFA-EPBX 10,000 UNIT/1 ML VIAL SUB-Q PRN (13:53)
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
== END 2021-06-26 16:30 | disposition home or self-care (01) | DRG 252 ==
LOC: ED 13:33 → SUATTDRO 13:33 → 4A 19:00
PROVIDERS: ADMIT Internal Medicine; ATTEND Hospitalist
PROC: 057Y3ZZ Dilation of Upper Vein, Percutaneous Approach (ICD-10-PCS; principal; 2021-06-22)
PROC: B51W1ZZ Fluoroscopy of Dialysis Shunt/Fistula using Low Osmolar Contrast (ICD-10-PCS; 2021-06-22)
DX: T82.590A Other mechanical complication of surgically created arteriovenous fistula, initial encounter (principal); N18.6 End stage renal disease; E87.2 Acidosis; E87.70 Fluid overload, unspecified; I12.0 Hypertensive chronic kidney disease with stage 5 chronic kidney disease or end stage renal disease; E11.22 Type 2 diabetes mellitus with diabetic chronic kidney disease; D63.1 Anemia in chronic kidney disease; Z20.822 Contact with and (suspected) exposure to COVID-19; Z79.4 Long term (current) use of insulin; M19.90 Unspecified osteoarthritis, unspecified site; V87.7XXA Person injured in collision between other specified motor vehicles (traffic), initial encounter; Y93.89 Activity, other specified; Y92.488 Other paved roadways as the place of occurrence of the external cause; Y99.8 Other external cause status; L84 Corns and callosities; Y83.2 Surgical operation with anastomosis, bypass or graft as the cause of abnormal reaction of the patient, or of later complication, without mention of misadventure at the time of the procedure; Y92.89 Other specified places as the place of occurrence of the external cause
CPT/HCPCS: 36415; 36902; 71046; 80048; 80053; 80074; 82962; 83880; 84100; 85007; 85025; 86705; 86706; 86803; 93005; G0378; J3490; Q9967; C1725; C1769; C1894; J0360; J0690; J0885; J1200; J1644; J1815; J1940; J2250; J3010; J7040; U0003

== ENCOUNTER 2021-08-15 15:38 | Emergency (ER) | payer MEDICAID, OTHER ==
[2021-08-15] MEDS ORDERED: LORazepam 2 MG/ML VIAL IV ONE (16:01)
[2021-08-15] MEDS ORDERED: ONDANSETRON 4 MG/2 ML INJ IV ONE (16:01)
[2021-08-15] MEDS ORDERED: ONDANSETRON 4 MG/2 ML INJ IM ONE (16:02)
[2021-08-15] MEDS ORDERED: LORazepam 2 MG/ML VIAL IM ONE (16:03)
[2021-08-15] MEDS ORDERED: cloNIDine 0.2 MG TAB PO ONE (16:08)
--- NOTE | 2021-08-15 16:08 | Emergency Department Report ---
HPI - General Chief Complaint: High BP Time Seen by Provider: 08/15/21 15:51 - HPI HPI: Room 20 Patient is a 61-year-old female present with a chief complaint of hypertension. Patient has a history of hypertension end-stage renal disease and reportedly was at her dialysis center today receiving dialysis. The patient states she became upset when she realized it was a worker there caring for her that she requested not to be involved in her care. Patient states she began to feel jittery nauseous and her blood pressure was elevated to reportedly 260/100 while at hemodialysis. EMS was called and patient was transported to the ED. EMS reports the patient was on dialysis today for 75% of her normal time before EMS was called ED Past Medical Hx - Past Medical History Hx Hypertension: Yes Hx Diabetes: Yes Hx Renal Disease: Yes (ESRD, HD Q , Sat Dr De Anda) Hx Arthritis: Yes Additional medical history: Anemia. sacroidosis - Surgical History Additional Surgical History: Left knee. Left 5th digit repair. Left upper extremity fistula - Family History Family history: no significant - Social History Smoking Status: Never Smoker Substance Use Type: None (Denies illicit drug use) - Medications Home Medications: Home Medications Medication Instructions Recorded Confirmed Last Taken Type Gabapentin 100 mg PO DAILY PRN 02/25/16 06/20/21 05/19/21 History HumaLOG VIAL 10 unit SQ DAILY 02/25/16 06/20/21 05/19/21 History amLODIPine 10 mg PO QDAY tablet 03/03/21 06/20/21 05/19/21 Rx Insulin Detemir (Nf) [Levemir 20 units SQ DAILY 03/24/21 06/20/21 05/19/21 History Flextouch (Nf)] Iron [Iron 18 MG TAB] 18 mg PO DAILY 03/24/21 06/20/21 05/19/21 History Acetaminophen [Acetaminophen TAB] 650 mg PO Q4H PRN tablet 06/26/21 Unknown Rx Epoetin Daniel-Epbx 10,000 Unit 10,000 unit SUB-Q LACY PRN vial 06/26/21 Unknown Rx [Retacrit] Furosemide [Lasix TAB] 80 mg PO 0600,1800 tablet 06/26/21 Unknown Rx Heparin [Heparin 10,000 Units/10 3,000 unit IV LACY PRN vial 06/26/21 Unknown Rx ml] ED Review of Systems ROS: Stated complaint: HYPERTENSION Other details as noted in HPI Constitutional: no symptoms reported Eyes: denies: eye pain ENT: denies: throat pain Respiratory: no symptoms reported Cardiovascular: denies: chest pain Endocrine: no symptoms reported Gastrointestinal: nausea. denies: vomiting Musculoskeletal: denies: back pain Neurological: other (Anxious) Physical Exam - Physical Exam Vital Signs: Vital Signs 08/15/21 15:39 Pulse Rate 75 Respiratory 16 Rate Blood Pressure 260/100 [Left] O2 Sat by Pulse 99 Oximetry Physical Exam: GENERAL: The patient is well-developed well-nourished female lying on stretcher not appearing to be in acute distress. [] HEENT: Normocephalic. Atraumatic. Extraocular motions are intact. Patient has moist mucous membranes. NECK: Supple. Trachea midline CHEST/LUNGS: Clear to auscultation. There is no respiratory distress noted. HEART/CARDIOVASCULAR: Regular. There is no tachycardia. There is a 4/6 systol ic murmur (patient reports history of murmur) ABDOMEN: Abdomen is soft, nontender. Patient has normal bowel sounds. There is no abdominal distention. SKIN: There is no rash. There is no diaphoresis. NEURO: The patient is awake, alert, and oriented. The patient is cooperative. The patient has no focal neurologic deficits. The patient has normal speech. Cranial nerves II through XII grossly intact MUSCULOSKELETAL: There is no evidence of acute injury. ED Course Vital Signs 08/15/21 15:39 Pulse Rate 75 Respiratory 16 Rate Blood Pressure 260/100 [Left] O2 Sat by Pulse 99 Oximetry - Reevaluation(s) Reevaluation #1: 08/15/21 16:06 Patient refusing IV 08/15/21 17:46 Blood pressure improved after medications systolic 137 - Consultations Consultation #1: 08/15/21 17:45 Nephrology paged 08/15/21 18:03 Case discussed with broiler chef or cook Dr. De Anda-he was made aware of the patient's unhappiness with current dialysis center. He states he will contact the patient ED Medical Decision Making - Lab Data Result diagrams: 08/15/21 16:18 08/15/21 16:18 [facility] [address] [place] [address] Cat Scan Report Signed Patient: KATELYN LA MR#: [id number] : 1960 Acct:[id number] Age/Sex: 61 / F ADM Date: 08/15/21 Loc: ED Attending Dr: Ordering Physician: AMERICA ALBRECHT MD Date of Service: 08/15/21 Procedure(s): CT head/brain wo con Accession Number(s): [id number] cc: AMERICA ALBRECHT MD CT head/brain wo con INDICATION / CLINICAL INFORMATION: 61 years Female; Hypertension, nausea. TECHNIQUE: Routine CT head without contrast. All CT scans at this location are performed using CT dose reduction for ALARA by means of automated exposure control. COMPARISON: None. FINDINGS: BRAIN / INTRACRANIAL CONTENTS: There appears be mild cerebral white matter disease most consistent with microvascular angiopathy. Is also mild cerebral atrophy. The ventricular system is correspondingly appropriate in size and configuration. There is calcification along the falx. There is no clear CT evidence of acute intracranial hemorrhage or significant mass effect. ORBITS: No significant abnormality of visualized orbits. SINUSES / MASTOIDS: There is minimal mucosal thickening within the visualized left maxillary sinus. CRANIOCERVICAL JUNCTION: No significant abnormality. ADDITIONAL FINDINGS: None. IMPRESSION: 1. There is mild microvascular angiopathy as described without CT evidence of acute intracranial hemorrhage. Signer Name: Matthew Lundberg MD Signed: 08/15/2021 4:52 PM Workstation Name: [employer] [id number] Transcribed By: MR Dictated By: Matthew Lundberg MD Electronically Authenticated By: Matthew Lundberg MD Signed Date/Time: 08/15/211651 DD/ 48 TD/TT: - Radiology Data Radiology results: report reviewed (CT head), image reviewed (CT head) [facility] [address] [place] [address] Cat Scan Report Signed Patient: KATELYN LA MR#: [id number] : 1960 Acct:[id number] Age/Sex: 61 / F ADM Date: 08/15/21 Loc: ED Attending Dr: Ordering Physician: AMERICA ALBRECHT MD Date of Service: 08/15/21 Procedure(s): CT head/brain wo con Accession Number(s): [id number] cc: AMERICA ALBRECHT MD CT head/brain wo con INDICATION / CLINICAL INFORMATION: 61 years Female; Hypertension, nausea. TECHNIQUE: Routine CT head without contrast. All CT scans at this location are performed using CT dose reduction for ALARA by means of automated exposure control. COMPARISON: None. FINDINGS: BRAIN / INTRACRANIAL CONTENTS: There appears be mild cerebral white matter disease most consistent with microvascular angiopathy. Is also mild cerebral atrophy. The ventricular system is correspondingly appropriate in size and configuration. There is calcification along the falx. There is no clear CT evidence of acute intracranial hemorrhage or significant mass effect. ORBITS: No significant abnormality of visualized orbits. SINUSES / MASTOIDS: There is minimal mucosal thickening within the visualized left maxillary sinus. CRANIOCERVICAL JUNCTION: No significant abnormality. ADDITIONAL FINDINGS: None. IMPRESSION: 1. There is mild microvascular angiopathy as described without CT evidence of acute intracranial hemorrhage. Signer Name: Matthew Lundberg MD Signed: 08/15/2021 4:52 PM Workstation Name: [id number] Transcribed By: MR Dictated By: Matthew Lundberg MD Electronically Authenticated By: Matthew Lundberg MD Signed Date/Time: 08/15/211651 DD/ 48 TD/TT: - Differential Diagnosis Hypertension, hypertensive urgency, hypertensive emergency Critical care attestation.: If time is entered above; I have spent that time in minutes in the direct care of this critically ill patient, excluding procedure time. ED Disposition Clinical Impression: Hypertension, ESRD (end stage renal disease) Disposition: 01 HOME / SELF CARE / HOMELESS Is pt being admited?: No Does the pt Need Aspirin: No Condition: Stable Instructions: Hypertension (ED), Managing Your Hypertension Additional Instructions: Your broiler chef or cook states he will contact you regarding your current dialysis center and concerns. Return to the emergency department should you develop worsening symptoms, inability to tolerate food or liquids, high fever or any other concerns Referrals: SEBAS DE ANDA MD [Staff Physician] - 3-5 Days Time of Disposition: 18:07
[2021-08-15 16:48] LABS: Basophils # (Auto) 0.1 K/mm3 (0.0-0.1); Basophils % (Auto) 0.8 % (0.0-1.8); Eosinophils # (Auto) 0.3 K/mm3 (0.0-0.4); Eosinophils % (Auto) 3.2 % (0.0-4.3); Hematocrit 28.9 % (30.3-42.9); Hemoglobin 10.1 gm/dl (10.1-14.3); Lymphocytes # (Auto) 1.9 K/mm3 (1.2-5.4); Lymphocytes % (Auto) 24.5 % (13.4-35.0); Mean Corpuscular HGB Conc 35 % (30-34); Mean Corpuscular Volume 87 fl (79-97); Monocytes # (Auto) 0.9 K/mm3 (0.0-0.8); Platelet Count 317 K/mm3 (140-440); Red Blood Count 3.32 M/mm3 (3.65-5.03); Red Cell Distribution Width 15.1 % (13.2-15.2)
--- NOTE | 2021-08-15 16:56 | Cat Scan Report ---
CT head/brain wo con INDICATION / CLINICAL INFORMATION: 61 years Female; Hypertension, nausea. TECHNIQUE: Routine CT head without contrast. All CT scans at this location are performed using CT dos e reduction for ALARA by means of automated exposure control. COMPARISON: None. FINDINGS: BRAIN / INTRACRANIAL CONTENTS: There appears be mild cerebral white matter disease most consistent wi th microvascular angiopathy. Is also mild cerebral atrophy. The ventricular system is correspondingly appropriate in size and configuration. There is calcification along the falx. There is no clear CT e vidence of acute intracranial hemorrhage or significant mass effect. ORBITS: No significant abnormality of visualized orbits. SINUSES / MASTOIDS: There is minimal mucosal thickening within the visualized left maxillary sinus. CRANIOCERVICAL JUNCTION: No significant abnormality. ADDITIONAL FINDINGS: None. IMPRESSION: 1. There is mild microvascular angiopathy as described without CT evidence of acute intracranial hemo rrhage. Signer Name: Matthew Lundberg MD Signed: 08/15/2021 4:52 PM Workstation Name: [id number]
[2021-08-15 16:58] LABS: Calcium 8.6 mg/dL (8.4-10.2)
[2021-08-15 19:07] VITALS: BP 145/69
== END 2021-08-15 19:08 | disposition home or self-care (01) ==
LOC: ED 15:38
DX: I12.0 Hypertensive chronic kidney disease with stage 5 chronic kidney disease or end stage renal disease (principal); E11.22 Type 2 diabetes mellitus with diabetic chronic kidney disease; N18.6 End stage renal disease; Z99.2 Dependence on renal dialysis; R51.9 Headache, unspecified; M19.90 Unspecified osteoarthritis, unspecified site; Z79.899 Other long term (current) drug therapy
CPT/HCPCS: 36415; 70450; 80048; 85025; 99284; J2060; J2405

== ENCOUNTER 2021-09-22 13:35 | Emergency (ER) | payer MEDICAID ==
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
--- NOTE | 2021-09-22 15:38 | XRay Report ---
CHEST 1 VIEW 09/22/2021 2:28 PM INDICATION / CLINICAL INFORMATION: sob,missed dialysis. COMPARISON: 06/19/2021 FINDINGS: SUPPORT DEVICES: None. HEART / MEDIASTINUM: Stable. LUNGS / PLEURA: Mild interstitial opacities most pronounced in the lung bases. No pneumothorax. ADDITIONAL FINDINGS: No significant additional findings. IMPRESSION: 1. Mild pulmonary edema. Signer Name: Jimbo Lawson MD Signed: 09/22/2021 3:33 PM Workstation Name: [id number]
[2021-09-22 15:50] LABS: Basophils % (Auto) 0.5 % (0.0-1.8); Eosinophils # (Auto) 0.3 K/mm3 (0.0-0.4); Eosinophils % (Auto) 3.3 % (0.0-4.3); Hematocrit 27.4 % (30.3-42.9); Hemoglobin 9.1 gm/dl (10.1-14.3); Lymphocytes # (Auto) 1.9 K/mm3 (1.2-5.4); Lymphocytes % (Auto) 24.1 % (13.4-35.0); Mean Corpuscular HGB Conc 33 % (30-34); Mean Corpuscular Volume 87 fl (79-97); Monocytes # (Auto) 0.7 K/mm3 (0.0-0.8); Monocytes % (Auto) 8.4 % (0.0-7.3); Platelet Count 309 K/mm3 (140-440); Red Blood Count 3.16 M/mm3 (3.65-5.03); Red Cell Distribution Width 14.7 % (13.2-15.2)
[2021-09-22 16:04] LABS: Calcium 8.3 mg/dL (8.4-10.2)
[2021-09-22 19:17] VITALS: BP 141/89
== END 2021-09-22 18:30 | disposition home or self-care (01) ==
LOC: ED 13:35
DX: I12.9 Hypertensive chronic kidney disease with stage 1 through stage 4 chronic kidney disease, or unspecified chronic kidney disease (principal); E11.22 Type 2 diabetes mellitus with diabetic chronic kidney disease; Z91.14 Patient's other noncompliance with medication regimen; F43.0 Acute stress reaction; N18.6 End stage renal disease
CPT/HCPCS: 36415; 71045; 80048; 85025; 99284

== ENCOUNTER 2021-10-27 16:11 | Emergency (ER) | payer MEDICARE ==
[2021-10-27 16:41] VITALS: BP 132/76
--- NOTE | 2021-10-27 18:30 | Emergency Department Report ---
HPI - General Chief Complaint: Chest Pain Time Seen by Provider: 10/27/21 18:04 - HPI HPI: [facility] Patient is a 61-year-old female present with a chief complaint of chest pain after hemodialysis. Patient states her pressure dropped while she was at hemodialysis she became dizzy. Patient states she was recorded at 84/49. Patient states afterwards she developed sharp pain in the left chest/anterior axillary line. The patient states she is took Tylenol and after 20 minutes the pain resolved. Patient denied ever having shortness of breath, nausea/vomiting or diaphoresis with her pain. Patient denies pleurisy. The patient states she had a 1.5-hour flight 2 weeks ago but denies any long road trips. Patient now only complains of feeling hungry ED Past Medical Hx - Past Medical History Previous Medical History?: Yes Hx Hypertension: Yes Hx Diabetes: Yes Hx Renal Disease: Yes (ESRD, HD Q T, , Sat Dr Musa) Hx Arthritis: Yes Additional medical history: Anemia. sacroidosis - Surgical History Additional Surgical History: Left knee. Left 5th digit repair. Left upper extremity fistula - Family History Family history: no significant - Social History Smoking Status: Never Smoker Substance Use Type: None (Denies illicit drug use) - Medications Home Medications: Home Medications Medication Instructions Recorded Confirmed Last Taken Type Gabapentin 100 mg PO DAILY PRN 02/25/16 06/20/21 05/19/21 History HumaLOG VIAL 10 unit SQ DAILY 02/25/16 06/20/21 05/19/21 History amLODIPine 10 mg PO QDAY tablet 03/03/21 06/20/21 05/19/21 Rx Insulin Detemir (Nf) [Levemir 20 units SQ DAILY 03/24/21 06/20/21 05/19/21 History Flextouch (Nf)] Iron [Iron 18 MG TAB] 18 mg PO DAILY 03/24/21 06/20/21 05/19/21 History Acetaminophen [Acetaminophen TAB] 650 mg PO Q4H PRN tablet 06/26/21 Unknown Rx Epoetin Daniel-Epbx 10,000 Unit 10,000 unit SUB-Q LACY PRN vial 06/26/21 Unknown Rx [Retacrit] Furosemide [Lasix TAB] 80 mg PO 0600,1800 tablet 06/26/21 Unknown Rx Heparin [Heparin 10,000 Units/10 3,000 unit IV LACY PRN vial 06/26/21 Unknown Rx ml] Furosemide [Lasix TAB] 80 mg PO DAILY #30 tab 09/22/21 Unknown Rx NIFEdipine XL [Procardia Xl] 90 mg PO QDAY #30 tablet 09/22/21 Unknown Rx ED Review of Systems ROS: Stated complaint: CHEST PAIN Other details as noted in HPI Constitutional: denies: fever Eyes: denies: eye pain ENT: denies: throat pain Respiratory: denies: shortness of breath Cardiovascular: chest pain Endocrine: no symptoms reported Gastrointestinal: denies: nausea, vomiting Musculoskeletal: denies: back pain Neurological: denies: headache Physical Exam - Physical Exam Vital Signs: Vital Signs 10/27/21 16:39 Temperature 97.9 F Pulse Rate 88 Respiratory 16 Rate Blood Pressure 132/76 [Left] O2 Sat by Pulse 97 Oximetry Physical Exam: GENERAL: The patient is well-developed well-nourished female lying on stretcher not appearing to be in acute distress. [] HEENT: Normocephalic. Atraumatic. Extraocular motions are intact. Patient has moist mucous membranes. NECK: Supple. Trachea midline CHEST/LUNGS: Clear to auscultation. There is no respiratory distress noted. HEART/CARDIOVASCULAR: Regular. There is no tachycardia. There is no gallop rub or murmur. ABDOMEN: Abdomen is soft, nontender. Patient has normal bowel sounds. There is no abdominal distention. SKIN: There is no rash. There is trace bilateral lower extremity pitting edema. There is no diaphoresis. NEURO: The patient is awake, alert, and oriented. The patient is cooperative. The patient has no focal neurologic deficits. The patient has normal speech. GCS 15 MUSCULOSKELETAL: There is no evidence of acute injury. ED Course Vital Signs 10/27/21 16:39 Temperature 97.9 F Pulse Rate 88 Respiratory 16 Rate Blood Pressure 132/76 [Left] O2 Sat by Pulse 97 Oximetry - Reevaluation(s) Reevaluation #1: 10/27/21 21:01 Patient signed out to oncoming ED physician. Awaiting repeat troponin and VQ scan results. If VQ scan is negative, second troponin is not increasing and patient remains asymptomatic she will likely be discharged home ED Medical Decision Making - Lab Data Result diagrams: 10/27/21 19:28 10/27/21 19:28 - EKG Data -: EKG Interpreted by Me EKG shows normal: sinus rhythm Rate: normal - EKG Data When compared to previous EKG there are: no significant change Interpretation: unchanged when compared t (06/20/2021) - Radiology Data Radiology results: pending (VQ scan), report reviewed (Chest x-ray), image reviewed (Chest x-ray) interpreted by me: Chest x-ray-no definite focal infiltrates, no pneumothorax [facility] [address] [place] [address] XRay Report Signed Patient: KATELYN LA MR#: [id number] : 1960 Acct:[id number] Age/Sex: 61 / F ADM Date: 10/27/21 Loc: ED Attending Dr: Ordering Physician: AMERICA ALBRECHT MD Date of Service: 10/27/21 Procedure(s): XR chest 1V ap Accession Number(s): [id number] cc: AMERICA ALBRECHT MD Fluoro Time In Minutes: XR chest 1V ap INDICATION / CLINICAL INFORMATION: chest pain. COMPARISON: 09/22/2021 FINDINGS: SUPPORT DEVICES: None. HEART /PULMONARY VASCULATURE: Mild cardiac enlargement and mild prominence of the pulmonary vasculature. LUNGS / PLEURA: No focal airspace opacity. No sizable pleural effusion. No pneumothorax. ADDITIONAL FINDINGS: No significant additional findings. IMPRESSION: Mild cardiac enlargement and prominence of the pulmonary vasculature, may reflect mild CHF. Signer Name: Gerri Puentes MD Signed: 10/27/2021 7:17 PM Workstation Name: [id number] Transcribed By: JS Dictated By: GERRI PUENTES MD Electronically Authenticated By: GERRI PUENTES MD Signed Date/Time: 10/27/211916 DD/ 15 TD/TT: - Differential Diagnosis Atypical chest pain, muscle strain, ACS, PE Critical care attestation.: If time is entered above; I have spent that time in minutes in the direct care of this critically ill patient, excluding procedure time. ED Disposition Condition: Stable Referrals: PRIMARY CARE, [Primary Care Provider] - 3-5 Days Heart Score - HEART Score History: Slightly suspicious EKG: Normal Age: 45-65 Risk factors: 1-2 risk factors Troponin: 1-3x normal limit HEART Score: 3 - EKG Read Time Time EKG Completed: 18:34 EKG Read Time: 18:40
--- NOTE | 2021-10-27 19:21 | XRay Report ---
XR chest 1V ap INDICATION / CLINICAL INFORMATION: chest pain. COMPARISON: 09/22/2021 FINDINGS: SUPPORT DEVICES: None. HEART /PULMONARY VASCULATURE: Mild cardiac enlargement and mild prominence of the pulmonary vasculatu re. LUNGS / PLEURA: No focal airspace opacity. No sizable pleural effusion. No pneumothorax. ADDITIONAL FINDINGS: No significant additional findings. IMPRESSION: Mild cardiac enlargement and prominence of the pulmonary vasculature, may reflect mild CHF. Signer Name: Francisco Puentes MD Signed: 10/27/2021 7:17 PM Workstation Name: [id number]
[2021-10-27 19:44] LABS: Basophils # (Auto) 0.1 K/mm3 (0.0-0.1); Eosinophils # (Auto) 0.2 K/mm3 (0.0-0.4); Eosinophils % (Auto) 1.8 % (0.0-4.3); Hematocrit 35.6 % (30.3-42.9); Hemoglobin 11.3 gm/dl (10.1-14.3); Lymphocytes # (Auto) 1.4 K/mm3 (1.2-5.4); Lymphocytes % (Auto) 15.2 % (13.4-35.0); Mean Corpuscular HGB Conc 32 % (30-34); Mean Corpuscular Volume 90 fl (79-97); Monocytes # (Auto) 0.7 K/mm3 (0.0-0.8); Monocytes % (Auto) 7.1 % (0.0-7.3); Platelet Count 326 K/mm3 (140-440); Red Blood Count 3.96 M/mm3 (3.65-5.03); Red Cell Distribution Width 15.2 % (13.2-15.2)
[2021-10-27 19:59] LABS: Creatine Kinase MB 3.6 ng/mL (0.0-4.0)
[2021-10-27 20:00] LABS: Calcium 9.2 mg/dL (8.4-10.2)
[2021-10-27 20:47] LABS: Chol/HDL Ratio 3.93 %
--- NOTE | 2021-10-27 22:27 | Event Note ---
Date: 10/27/21 I am suppose to follow up on this patient V/Q scan ordered by Dr Leavitt to rule out PE due to elevated d-dimer but patient decided to sign out AMA before the procedure could be done citing that she has be go home for something personal. Pt could not be persuaded.
== END 2021-10-27 21:45 | disposition left against medical advice (07) ==
LOC: ED 16:11
DX: R07.9 Chest pain, unspecified (principal); I12.0 Hypertensive chronic kidney disease with stage 5 chronic kidney disease or end stage renal disease; E11.22 Type 2 diabetes mellitus with diabetic chronic kidney disease; N18.6 End stage renal disease; Z99.2 Dependence on renal dialysis; M19.90 Unspecified osteoarthritis, unspecified site; D64.9 Anemia, unspecified; Z98.890 Other specified postprocedural states
CPT/HCPCS: 36415; 71045; 80048; 80061; 82550; 82553; 84484; 85025; 85379; 93005; 99284